=== PATIENT | female | born 1975 | race Caucasian/White ===

== ENCOUNTER 2018-04-04 18:35 | Emergency (ER) | payer MEDICAID, SELFPAY ==
[2018-04-04 18:44] VITALS: BP 115/77; PULSE 82; RESP 16; TEMP 36.6; O2SAT 99
--- NOTE | 2018-04-04 19:13 | DI.RPTCT_ITS ---
SYMPTOMS/DIAGNOSIS: LEFT FLANK AND ABDOMINAL PAIN WITH DYSURIA, KIDNEY/BLADDER ISSUES NONCONTRAST CT OF THE ABDOMEN AND PELVIS: Exam is somewhat limited by the patient's body habitus. There is a nonobstructing stone seen at the upper pole of the right kidney. There is no evidence of hydronephrosis. The bladder is unremarkable. The visualized portions of the lung bases are clear. There is hepatic steatosis. A single calcified gallstone is noted in the gallbladder. There is no gallbladder wall thickening or biliary dilatation. The spleen, adrenals and pancreas are unremarkable. The appendix appears normal. There is no bowel dilatation or inflammatory change. There is no free air or free fluid. No adenopathy is seen. The uterus and ovaries are unremarkable. There is bilateral spondylolysis at L4 and mild L4-5 spondylolisthesis. The aorta is normal in diameter. There is a small amount of fat at the umbilicus. IMPRESSION: Nonobstructing stone near the upper pole of the right kidney. No acute abnormality.
--- NOTE | 2018-04-04 19:14 | ED.GENADUL ---
Disposition Disposition: STILL A PATIENT Medical Decision Making - Medical Decision Making 42-year-old female with recent UTI treated with nitrofurantoin. She presents today complaining of left flank pain radiating to her abdomen with associated recurrence of dysuria. She is afebrile with unremarkable vital signs. Exam reveals left flank and left upper quadrant tenderness. Differential diagnosis includes pyelonephritis, renal colic, acute cystitis. Patient had IV access established, given analgesic, antiemetic, fluid bolus, referred for laboratory testing with urinalysis as well as CT scan of the abdomen to rule out kidney stone. Patient be signed out to Dr. Mayers pending her diagnostic workup. Please see his note regarding final impression and disposition. History of Present Illness - General Chief complaint: Urinary Stated complaint: KIDNEY/BLADDER ISSUES Time Seen by Provider: 04/04/18 18:40 Source: patient, RN notes reviewed Mode of arrival: ambulatory Limitations: no limitations - History of Present Illness Initial comments: Dysuria and flank pain: 42-year-old female who was treated approximately 3 weeks ago for urinary tract infection with 5 days of nitrofurantoin. She states she felt improvement. She now reports 4 days of increased urinary urgency and frequency with burning of urination. This morning she reports day 2 of the gradual onset of left flank pain it is dull, achy, constant with intermittent spikes of severity. It radiates to her abdomen. It is associated with nausea. She has not had any significant emesis. She denies a fever. No vaginal bleeding or discharge. There is no other modifying factors for her discomfort - Related Data Acetaminophen [Tylenol Extra Strength] 1,000 mg PO Q4H PRN PRN #0 02/20/16 Ibuprofen 1 tab PO Q4H PRN PRN #0 02/20/16 Nitroglycerin [Nitrostat] 0.4 mg SL Q5 MIN PRN X3 PRN #100 tab 02/20/16 Omeprazole 20 mg PO DAILY #90 tab-cap 03/19/17 Sertraline HCl [Zoloft] 50 mg PO DAILY #90 tab-cap 07/31/17 Phenazopyridine HCl [Pyridium] 200 mg PO TID #15 tab-cap 03/13/18 Allergies Allergy/AdvReac Type Severity Reaction Status Date / Time erythromycin base AdvReac DIARRHEA Unverified 04/04/18 18:47 Sulfa (Sulfonamide AdvReac DIARRHEA Unverified 04/04/18 18:47 Antibiotics) Review of Systems Other: 8 systems reviewed, otherwise negative Past Medical History - Past Medical History Medical history: no medical history Surgical history: other (LEFT OOPHERECTOMY AND TUBE) Family history: no significant family history - Social History Alcohol use: none Drug use: none General Exam - General Limitations: no limitations General appearance: alert, in no apparent distress - Head Head exam: Present: atraumatic, normocephalic - Eye Eye exam: Present: normal apperance, PERRL, EOMI - Respiratory Respiratory exam: Present: normal lung sounds bilaterally. Absent: respiratory distress - Cardiovascular Cardiovascular Exam: Present: regular rate, normal rhythm - GI/Abdominal GI/Abdominal exam: Present: soft, tenderness, other. Absent: distended - Back Exam Back exam: Present: CVA tenderness (L). Absent: vertebral tenderness - Neurological Exam Neurological exam: Present: alert, oriented X3 - Psychiatric Psychiatric exam: Present: normal affect, normal mood - Skin Skin exam: Present: warm, dry, intact Course Vital Signs - 24 hr 04/04/18 18:44 Temperature 36.6 C Pulse 82 Respiratory 16 Rate Blood Pressure 115/77 Pulse Oximetry 99
[2018-04-04] MEDS: Normal Saline 1,000 ML 150 ML IV (19:30)
[2018-04-04] MEDS: Ondansetron 4 MG/2 ML VIAL IVP (19:35)
[2018-04-04] MEDS: Ketorolac 30 MG/ML VIAL IVP (19:40)
[2018-04-04 20:05] LABS: Abs Immature Grans 0.02 k/cumm (0.0-0.09); Absolute Basophil Count 0.03 k/cumm (0.0-0.2); Absolute Eosinophil Count 0.11 k/cumm (0.0-0.7); Absolute Lymphocyte Count 1.74 k/cumm (1.2-3.4); Absolute Monocyte Count 0.74 k/cumm (0.11-0.7); Absolute Neutrophil Count 5.71 k/cumm (1.2-6.7); Basophils % 0.4; Eosinophils % 1.3; HCT 39.9 % (36.0-46.0); HGB 12.8 g/dL (12.0-15.5); Immature Grans % 0.2; Lymphocytes % 20.8; Mean Corp. HGB Concentration 32.1 g/dL (32.0-36.0); Mean Corpuscular Hemoglobin 24.9 pg (27.0-33.0); Mean Corpuscular Volume 77.6 fL (80-95); Mean Platelet Volume 9.9 fL (8.0-11.0); Monocytes % 8.9; Neutrophils % 68.4; Platelet Count 261 x1000/uL (130-400); RBC 5.14 m/cumm (4.00-5.20); RBC Distribution Width 15.7 % (11.7-14.6); White Blood Cell Count 8.35 k/cumm (4.4-10.8)
[2018-04-04 20:08] LABS: Bilirubin Negative (Negative); Blood Negative (Negative); Clarity Clear; Glucose Negative (Negative); Ketones 15 mg/dL (Negative); Leukocyte Esterase Small (Negative); Nitrite Negative (Negative); Specific Gravity 1.025 (1.005-1.025); Urobilinogen 0.2 EU/dL (Up TO 0.2); pH 5.5 (5-8)
[2018-04-04 20:11] LABS: ALT 21 U/L (12-78); AST 13 U/L (15-37); Albumin 3.9 g/dL (3.4-5.0); Alkaline Phosphatase 71 U/L (46-116); Anion Gap 11.2 mmol/L (3-11); BUN 9 mg/dL (7-18); Bilirubin, Total 0.6 mg/dL (0.2-1.0); CO2 26.8 mmol/L (21.0-32.0); CREATININE 0.83 mg/dL (0.55-1.02); Calcium 8.6 mg/dL (8.5-10.1); Chloride 102 mmol/L (98-107); Glucose 78 mg/dL (70-100); Potassium 3.5 mmol/L (3.5-5.1); Sodium 140 mmol/L (136-145); Total Protein 7.7 g/dL (6.4-8.2)
[2018-04-04 20:21] LABS: Bacteria Few HPF (Negative); C & S Indicated? No/Sq. Contamination; Casts Negative LPF (Negative); Crystals Negative HPF (Negative); Epithelial Cells Many HPF (Negative); Mucus Moderate (Negative); Other Cells Few Transitional (Negative); WBC >50 HPF (0-5)
[2018-04-04 21:10] LABS: Bilirubin Negative (Negative); Blood Negative (Negative); Clarity Clear; Glucose Negative (Negative); Ketones Trace mg/dL (Negative); Leukocyte Esterase Small (Negative); Nitrite Positive (Negative); Urobilinogen 0.2 EU/dL (Up TO 0.2); pH 5.5 (5-8)
--- NOTE | 2018-04-04 21:11 | DI.VRAD_ITS ---
EXAM: CT Abdomen and Pelvis Without Intravenous Contrast EXAM DATE/TIME: 04/04/2018 7:14 PM CLINICAL HISTORY: 42 years old, female; Pain; Abdominal pain TECHNIQUE: Axial computed tomography images of the abdomen and pelvis without intravenous contrast. Coronal and sagittal reformatted images were created and reviewed. COMPARISON: CT - ABD PELVIS WITH CONTRAST 2013-11-19 12:54 FINDINGS: The lung bases are clear. There are bilateral pars defects at L4. There is slight anterior subluxation of L4 with respect L5. There is mild fatty infiltration of the liver. A gallstone is seen within the gallbladder. The pancreas is unremarkable. The spleen is unremarkable. There is no adrenal mass. There is a 5 mm calculus in the midpole the right kidney. No hydronephrosis or mass is seen. The aorta is normal in caliber. The IVC is normal in caliber. There is no retroperitoneal adenopathy. There is no mesenteric adenopathy. The stomach is unremarkable. The small bowel loops in the upper abdomen are nondistended with no bowel wall thickening. Feces is seen throughout the colon. There is no thickening of the wall of the ascending, transverse or descending colons. There is a small fat containing umbilical hernia. Within the pelvis: A normal appendix is seen within the right lower quadrant. The bladder is nondistended. The uterus is unremarkable. There are no adnexal masses. There is no free fluid within the pelvis. There is no inguinal adenopathy. There is no pelvic adenopathy. Feces is seen within the rectosigmoid colon. IMPRESSION: 1. Mild constipation. No evidence for bowel obstruction or bowel wall thickening. 2. Normal appendix. 3. Mild fatty infiltration of the liver. 4. A gallstone is seen within the gallbladder. 5. No acute inflammatory process is seen within the abdomen or pelvis. Dictated and Authenticated by: Talat Carrasquillo MD. Ordering:YULISSA HAAS MD
[2018-04-04 21:16] LABS: Epithelial Cells Few HPF (Negative); RBC Negative (0-2); WBC 20-50 HPF (0-5)
[2018-04-04 21:17] LABS: Bacteria Negative HPF (Negative); C & S Indicated? Yes; Casts Negative LPF (Negative); Crystals Negative HPF (Negative); Mucus Negative (Negative); Other Cells Few Transitional (Negative)
--- NOTE | 2018-04-04 23:07 | ED.FU_ITS ---
Disposition Clinical Impression: Pyelonephritis, acute, Gallstones Disposition: HOME Condition: Good Instructions: Ciprofloxacin (By mouth), Kidney Infection (ED) Additional Instructions: Be sure to stay hydrated. Take all of the antibiotic as instructed. Follow-up with primary care this week to make sure you are getting better as well as to discuss the possibility of symptomatic gallstones. Return to ED for worsening pain, vomiting, persistent high fevers, other concerns. Prescriptions: Ciprofloxacin [Cipro] 500 mg PO BID #20 tab Referrals: Ravinder Escalante [Primary Care Provider] - Medical Decision Making - Lab Data Laboratory Tests 04/04/18 04/04/18 04/04/18 19:23 19:30 19:30 WBC 8.35 RBC 5.14 Hgb 12.8 Hct 39.9 MCV 77.6 L MCH 24.9 L MCHC 32.1 RDW 15.7 H Plt Count 261 MPV 9.9 Immature Gran % 0.2 Neutrophils % 68.4 Lymphocytes % 20.8 Monocytes % 8.9 Eosinophils % 1.3 Basophils % 0.4 Absolute Neutrophils 5.71 Absolute Lymphocytes 1.74 Absolute Monocytes 0.74 H Absolute Eosinophils 0.11 Absolute Basophils 0.03 Sodium 140 Potassium 3.5 Chloride 102 Carbon Dioxide 26.8 Anion Gap 11.2 H BUN 9 Creatinine 0.83 Estimated GFR/1.73 m2 >= 60.00 Glucose 78 Calcium 8.6 Total Bilirubin 0.6 AST 13 L ALT 21 Alkaline Phosphatase 71 Total Protein 7.7 Albumin 3.9 Urine Color Yellow Urine Clarity Clear Urine pH 5.5 Ur Specific [place] 1.025 Urine Protein 30 H Urine Ketones 15 H Urine Blood Negative Urine Nitrite Negative Urine Bilirubin Negative Urine Urobilinogen 0.2 Ur Leukocyte Esterase Small H Urine RBC 10-20 H Urine WBC >50 Ur Epithelial Cells Many Urine Crystals Negative Urine Bacteria Few Urine Casts Negative Urine Mucus Moderate Urine Other Few transitional Ur Culture Indicated? No/sq. contamination Urine Glucose Negative 04/04/18 20:50 WBC RBC Hgb Hct MCV MCH MCHC RDW Plt Count MPV Immature Gran % Neutrophils % Lymphocytes % Monocytes % Eosinophils % Basophils % Absolute Neutrophils Absolute Lymphocytes Absolute Monocytes Absolute Eosinophils Absolute Basophils Sodium Potassium Chloride Carbon Dioxide Anion Gap BUN Creatinine Estimated GFR/1.73 m2 Glucose Calcium Total Bilirubin AST ALT Alkaline Phosphatase Total Protein Albumin Urine Color Yellow Urine Clarity Clear Urine pH 5.5 Ur Specific [place] 1.020 Urine Protein Negative Urine Ketones Trace H Urine Blood Negative Urine Nitrite Positive H Urine Bilirubin Negative Urine Urobilinogen 0.2 Ur Leukocyte Esterase Small H Urine RBC Negative Urine WBC 20-50 Ur Epithelial Cells Few Urine Crystals Negative Urine Bacteria Negative Urine Casts Negative Urine Mucus Negative Urine Other Few transitional Ur Culture Indicated? Yes Urine Glucose Negative Results reviewed for labs ordered during visit: Yes - Radiology Data Radiology results: report reviewed - Medical Decision Making Patient's CBC and CMP are unremarkable. Initial urinalysis is contaminated. Discussed need for a clean specimen with patient. She agreed to straight cath. Straight cath urine clearly infected. Stone study significant for a gallstone. In discussion with her she does have right sided abdominal pain with some radiation to the right shoulder if she eats greasy/fatty foods. She has no tenderness or pain in the right upper quadrant tonight. She also has a 5 mm right kidney stone within the midpole. She has nothing in the left urinary system. Otherwise mostly unremarkable CT scan. Patient will be treated for acute pyelonephritis. As she has been on Macrobid recently will give IV ceftriaxone and continue her on fluoroquinolone for 10 days. She will need to follow-up with primary care this week both to discuss the possibility of symptomatic biliary colic and need for referral to surgery as well as for reevaluation for her response to the antibiotics for her pyelonephritis. Patient to return to ED for increasing pain, fever, vomiting, other concerns. Care Signed Out By:: Dr. Carreon - Vital Signs Recent Vitals - 8H: Vital Signs - 8 hr 04/04/18 18:44 Temperature 97.9 F Pulse 82 Respiratory 16 Rate Blood Pressure 115/77 Pulse Oximetry 99 - Continuation of Care Continuation of Care Plan: Patient had presented with recurrent urinary symptoms and new left flank pain. She had recently been treated for UTI. She was originally seen by Dr. Carreon who ordered laboratory studies, urinalysis, CT scan to rule out stone. She was signed over to me pending these results.
[2018-04-04 23:27] VITALS: BP 104/60; PULSE 70; RESP 16; TEMP 35.7; O2SAT 100
== END 2018-04-04 23:29 | disposition home or self-care (01) ==
PROVIDERS: Emergency Medicine; Emergency Provider Emergency Medicine; PCP Family Medicine
DX: N10 Acute pyelonephritis (principal); K80.20 Calculus of gallbladder without cholecystitis without obstruction; Z87.440 Personal history of urinary (tract) infections
CPT/HCPCS: 36415; 51701; 80053; 96361; 96365; 96375; 99284; 74176; 81003; 81015; 85025; 87086; J0696; J1885; J2405

== ENCOUNTER 2018-08-08 11:00 | Emergency (ER) | payer MEDICAID, SELFPAY ==
[2018-08-08 11:05] VITALS: BP 128/68; PULSE 72; RESP 16; TEMP 36.7; O2SAT 98
--- NOTE | 2018-08-08 11:18 | DI.RAD_ITS ---
SYMPTOM/DIAGNOSIS: FELL OUT OF ELEVATED TRUCK LANDING ON LEFT SHOULDER RIGHT SHOULDER: Multiple views. No acute fracture or dislocation is identified. IMPRESSION: No acute abnormality.
--- NOTE | 2018-08-08 11:18 | W.ED.GENAD ---
Discharge Plan Disposition Patient Disposition: HOME Condition: Good Discharge Details Chief Complaint: Orthopedic Clinical Impression: Contusion of right shoulder, Left wrist sprain Primary Care Provider: Ravinder Escalante ED Provider: Collin Panda Home Meds and New Rx's Prescriptions: New cyclobenzaprine 10 mg tablet 10 mg PO TID PRN (Reason: muscle spasm) Qty: 10 RF: 0 No Action omeprazole 20 MG capsule,delayed release(DR/EC) 20 mg PO DAILY Qty: 90 RF: 3 sertraline [Zoloft] 50 MG tablet 50 mg PO DAILY Qty: 90 RF: 3 nitroglycerin [Nitrostat] 0.4 MG tablet, sublingual 0.4 mg Sublingual Q5 MIN PRN X3 PRN (Reason: Chest Pain) Qty: 100 RF: 0 acetaminophen [Tylenol Extra Strength] 500 MG tablet 1,000 mg PO Q6H PRNQty: 0 RF: 0 ibuprofen 200 MG tablet 2 tab PO Q6H PRNQty: 0 RF: 0 Discharge Instructions Instructions: Contusion in Adults (ED), Wrist Sprain (ED) Additional Instructions: May use NSAID of your choice for pain and Flexeril as needed. Stand Alone Forms: Work Release Referrals: [facility] Emergency Dept. [Outside] - Return if symptoms worsen Medical Decision Making 42 y/o right hand dominant female. Will x-ray right shoulder and left wrist. Will provide Flexeril for the pain to right chest wall. Apprised pt of normal x-rays. Nurse fitted for left wrist splint. Good CSMT post splint placement. Pt tells me the flexeril was helpful. Will prescribe for home use. Advised to return to ED if symptoms worsen otherwise with pcp previously planned. Imaging Data Radiologic Study: Imaging: X-Ray My impression: No obvious fracture to left wrist film and right shoulder film. Radiologist's impression: v-rad: Left Wrist: No evidence for acute abnormality. Right shoulder: No evidence for acute abnormality. HPI General Mode of arrival: ambulatory. Date/Time Provider Initiated Documentation: 08/08/18 11:12. Limitations to Documentation: no limitations. Information obtained by: patient. History of Present Illness 42 year old F presents to the emergency department with the chief complaint of right shoulder and left wrist pain, described as mild, HPI Narrative: 42 y/o female here with c/o right shoulder and left wrist pain after fall two nights ago. She slipped getting out of a elevated truck landing on right anterior shoulder and left wrist. The pain in the left shoulder is worse and radiates into her chest. The pain in her left wrist is worse on the ulna side compared to radial side and most noticeable when she flexes at the wrist. Using Ibuprofen and Tylenol for the pain with little benefit. Related Data Home Medications Medication Instructions Recorded Confirmed nitroglycerin [Nitrostat] 0.4 mg SUBLINGUAL Q5 MIN PRN X3 02/20/16 08/08/18 PRN #100 tab omeprazole 20 mg PO DAILY #90 tab-cap 03/19/17 08/08/18 sertraline [Zoloft] 50 mg PO DAILY #90 tab-cap 07/31/17 08/08/18 acetaminophen [Tylenol Extra 1,000 mg PO Q6H PRN #0 04/04/18 08/08/18 Strength] ibuprofen 2 tab PO Q6H PRN #0 04/04/18 08/08/18 cyclobenzaprine 10 mg PO TID PRN #10 tab 08/08/18 Previous Rx's Medication Instructions Recorded nitroglycerin [Nitrostat] 0.4 mg SUBLINGUAL Q5 MIN PRN X3 02/20/16 PRN #100 tab sertraline [Zoloft] 50 mg PO DAILY #90 tab-cap 07/31/17 acetaminophen [Tylenol Extra 1,000 mg PO Q6H PRN #0 04/04/18 Strength] ibuprofen 2 tab PO Q6H PRN #0 04/04/18 cyclobenzaprine 10 mg PO TID PRN #10 tab 08/08/18 Allergies Allergy/AdvReac Type Severity Reaction Status Date / Time erythromycin base AdvReac DIARRHEA Unverified 08/08/18 11:10 Sulfa (Sulfonamide AdvReac DIARRHEA Unverified 08/08/18 11:10 Antibiotics) General Stated Complaint: Orthopedic MUKUL: 4 Review of Systems Review of Systems No head injury Musculoskeletal Reports myalgias (right shoulder and left wrist) PFSH Medical History BMI 45.0-49.9, adult Depression Family history of malignant neoplasm of ovary in first degree relative GERD (gastroesophageal reflux disease) Surgical History Oophrectomy, Left (~09/2013) Tooth extraction Family History Mother Diabetes Personal history of malignant neoplasm Father Heart disease Hyperlipidemia Sister Personal history of malignant neoplasm Grandfather No problems noted. Grandfather No problems noted. Grandmother No problems noted. Grandmother No problems noted. Daughter Depression Asthma Daughter No problems noted. Daughter Depression Social History household members: other details: 4 current occupational status: employed current occupation: [employer] frequency: 3-4 times per week duration: 30-45 minutes/day Smoking/Tobacco Use Status: Former Tobacco Use second hand exposure: Yes alcohol intake: current alcohol intake frequency: a few times a month substance use type: does not use seatbelt use: always Exam Const General: cooperative, comfortable and no acute distress Nutritional Appearance: obese Orientation: alert, awake and oriented x3 HENMT Head: atraumatic Ears: hearing grossly normal bilaterally and external ears normal General nose exam: external nose normal and nares normal Eyes General: appearance normal, both eyes and all related structures Neck Neck: normal visual inspection, full ROM, supple and nontender Chest Chest: normal inspection of the chest Resp Effort & Inspection: normal respiratory effort Auscultation: clear to auscultation bilaterally Cardio Rate: regular rate Rhythm: regular rhythm Back/Spine/Pelvis Cervical Spine: cervical ROM normal Thoracic/Lumbar Spine: thoraco-lumbar ROM normal Skin General skin exam: no rashes or lesions noted Neuro General: alert, awake and oriented x3 Extrem General: normal to inspection and normal capillary refill Right upper extremity: full ROM (with pain), normal capillary refill, no joint enlargement, shoulder/upper arm Details: tenderness Location: of the clavicle, of the A-C joint, over the biceps tendon, over the subacromial bursa and over the deltoid bursa and abnormal ROM Details: pain with active ROM and pain with passive ROM; no swelling, elbow/forearm Details: normal to inspection; no tenderness and wrist Details: normal to inspection; no tenderness Left upper extremity: normal to inspection, full ROM, normal capillary refill, shoulder/upper arm Details: inspection abnormal; no tenderness, elbow/forearm Details: normal to inspection; no tenderness and no swelling and wrist Details: normal to inspection, tenderness Location: of the distal radius, of the distal ulna, of the dorsal wrist and of the volar wrist; not of the anatomic snuffbox and normal ROM; no swelling and no unusual warmth Course Vital Signs Temperature 36.7 C 08/08/18 11:05 Pulse 72 08/08/18 11:05 Respiratory Rate 16 08/08/18 11:05 Blood Pressure 128/68 08/08/18 11:05 Pulse Oximetry 98 08/08/18 11:05 Temperature 36.7 C 08/08/18 11:05 Temperature Source Temporal Artery Scan 08/08/18 11:05 Pulse 72 08/08/18 11:05 Respiratory Rate 16 08/08/18 11:05 Respiratory Effort Non-Labored 08/08/18 11:09 Blood Pressure 128/68 08/08/18 11:05 Blood Pressure Position Sitting 08/08/18 11:05 Pulse Oximetry 98 08/08/18 11:05 Oxygen Delivery Method Room Air 08/08/18 11:05 Oxygen Flow Rate 0 08/08/18 11:05 Pain Level 7 08/08/18 11:05
--- NOTE | 2018-08-08 11:20 | DI.RAD_ITS ---
SYMPTOM/DIAGNOSIS: PAIN AFTER FALL. ULNA > RADIAL SIDE LEFT WRIST: Three views. No bone or joint abnormality is identified. IMPRESSION: No acute abnormality.
--- NOTE | 2018-08-08 11:22 | ED.GENADUL_ITS ---
Discharge Plan Disposition Patient Disposition: HOME Condition: Good Discharge Details Chief Complaint: Orthopedic Clinical Impression: Contusion of right shoulder, Left wrist sprain Primary Care Provider: Ravinder Escalante ED Provider: Collin Panda Home Meds and New Rx's Prescriptions: New cyclobenzaprine 10 mg tablet 10 mg PO TID PRN (Reason: muscle spasm) Qty: 10 RF: 0 No Action omeprazole 20 MG capsule,delayed release(DR/EC) 20 mg PO DAILY Qty: 90 RF: 3 sertraline [Zoloft] 50 MG tablet 50 mg PO DAILY Qty: 90 RF: 3 nitroglycerin [Nitrostat] 0.4 MG tablet, sublingual 0.4 mg Sublingual Q5 MIN PRN X3 PRN (Reason: Chest Pain) Qty: 100 RF: 0 acetaminophen [Tylenol Extra Strength] 500 MG tablet 1,000 mg PO Q6H PRNQty: 0 RF: 0 ibuprofen 200 MG tablet 2 tab PO Q6H PRNQty: 0 RF: 0 Discharge Instructions Instructions: Contusion in Adults (ED), Wrist Sprain (ED) Additional Instructions: May use NSAID of your choice for pain and Flexeril as needed. Stand Alone Forms: Work Release Referrals: [facility] Emergency Dept. [Outside] - Return if symptoms worsen Medical Decision Making 42 y/o right hand dominant female. Will x-ray right shoulder and left wrist. Will provide Flexeril for the pain to right chest wall. Apprised pt of normal x-rays. Nurse fitted for left wrist splint. Good CSMT post splint placement. Pt tells me the flexeril was helpful. Will prescribe for home use. Advised to return to ED if symptoms worsen otherwise with pcp previously planned. Imaging Data Radiologic Study: Imaging: X-Ray My impression: No obvious fracture to left wrist film and right shoulder film. Radiologist's impression: v-rad: Left Wrist: No evidence for acute abnormality. Right shoulder: No evidence for acute abnormality. HPI General Mode of arrival: ambulatory . Date/Time Provider Initiated Documentation: 08/08/18 11:12 . Limitations to Documentation: no limitations . Information obtained by: patient . History of Present Illness 42 year old F presents to the emergency department with the chief complaint of right shoulder and left wrist pain, described as mild, HPI Narrative: 42 y/o female here with c/o right shoulder and left wrist pain after fall two nights ago. She slipped getting out of a elevated truck landing on right anterior shoulder and left wrist. The pain in the left shoulder is worse and radiates into her chest. The pain in her left wrist is worse on the ulna side compared to radial side and most noticeable when she flexes at the wrist. Using Ibuprofen and Tylenol for the pain with little benefit. Related Data Home Medications Medication Instructions Recorded Confirmed nitroglycerin [Nitrostat] 0.4 mg SUBLINGUAL Q5 MIN PRN X3 02/20/16 08/08/18 PRN #100 tab omeprazole 20 mg PO DAILY #90 tab-cap 03/19/17 08/08/18 sertraline [Zoloft] 50 mg PO DAILY #90 tab-cap 07/31/17 08/08/18 acetaminophen [Tylenol Extra 1,000 mg PO Q6H PRN #0 04/04/18 08/08/18 Strength] ibuprofen 2 tab PO Q6H PRN #0 04/04/18 08/08/18 cyclobenzaprine 10 mg PO TID PRN #10 tab 08/08/18 Previous Rx's Medication Instructions Recorded nitroglycerin [Nitrostat] 0.4 mg SUBLINGUAL Q5 MIN PRN X3 02/20/16 PRN #100 tab sertraline [Zoloft] 50 mg PO DAILY #90 tab-cap 07/31/17 acetaminophen [Tylenol Extra 1,000 mg PO Q6H PRN #0 04/04/18 Strength] ibuprofen 2 tab PO Q6H PRN #0 04/04/18 cyclobenzaprine 10 mg PO TID PRN #10 tab 08/08/18 Allergies Allergy/AdvReac Type Severity Reaction Status Date / Time erythromycin base AdvReac DIARRHEA Unverified 08/08/18 11:10 Sulfa (Sulfonamide AdvReac DIARRHEA Unverified 08/08/18 11:10 Antibiotics) General Stated Complaint: Orthopedic MUKUL: 4 Review of Systems Review of Systems No head injury Musculoskeletal Reports myalgias (right shoulder and left wrist) PFSH Medical History BMI 45.0-49.9, adult Depression Family history of malignant neoplasm of ovary in first degree relative GERD (gastroesophageal reflux disease) Surgical History Oophrectomy, Left (~09/2013) Tooth extraction Family History Mother Diabetes Personal history of malignant neoplasm Father Heart disease Hyperlipidemia Sister Personal history of malignant neoplasm Grandfather No problems noted. Grandfather No problems noted. Grandmother No problems noted. Grandmother No problems noted. Daughter Depression Asthma Daughter No problems noted. Daughter Depression Social History household members: other details: 4 current occupational status: employed current occupation: [id number] frequency: 3-4 times per week duration: 30-45 minutes/day Smoking/Tobacco Use Status: Former Tobacco Use second hand exposure: Yes alcohol intake: current alcohol intake frequency: a few times a month substance use type: does not use seatbelt use: always Exam Const General: cooperative, comfortable and no acute distress Nutritional Appearance: obese Orientation: alert, awake and oriented x3 HENMT Head: atraumatic Ears: hearing grossly normal bilaterally and external ears normal General nose exam: external nose normal and nares normal Eyes General: appearance normal, both eyes and all related structures Neck Neck: normal visual inspection, full ROM, supple and nontender Chest Chest: normal inspection of the chest Resp Effort & Inspection: normal respiratory effort Auscultation: clear to auscultation bilaterally Cardio Rate: regular rate Rhythm: regular rhythm Back/Spine/Pelvis Cervical Spine: cervical ROM normal Thoracic/Lumbar Spine: thoraco-lumbar ROM normal Skin General skin exam: no rashes or lesions noted Neuro General: alert, awake and oriented x3 Extrem General: normal to inspection and normal capillary refill Right upper extremity: full ROM (with pain), normal capillary refill, no joint enlargement, shoulder/upper arm Details: tenderness Location: of the clavicle, of the A-C joint, over the biceps tendon, over the subacromial bursa and over the deltoid bursa and abnormal ROM Details: pain with active ROM and pain with passive ROM; no swelling, elbow/forearm Details: normal to inspection; no tenderness and wrist Details: normal to inspection; no tenderness Left upper extremity: normal to inspection, full ROM, normal capillary refill, shoulder/upper arm Details: inspection abnormal; no tenderness, elbow/forearm Details: normal to inspection; no tenderness and no swelling and wrist Details: normal to inspection, tenderness Location: of the distal radius, of the distal ulna, of the dorsal wrist and of the volar wrist; not of the anatomic snuffbox and normal ROM; no swelling and no unusual warmth Course Vital Signs Temperature 36.7 C 08/08/18 11:05 Pulse 72 08/08/18 11:05 Respiratory Rate 16 08/08/18 11:05 Blood Pressure 128/68 08/08/18 11:05 Pulse Oximetry 98 08/08/18 11:05 Temperature 36.7 C 08/08/18 11:05 Temperature Source Temporal Artery Scan 08/08/18 11:05 Pulse 72 08/08/18 11:05 Respiratory Rate 16 08/08/18 11:05 Respiratory Effort Non-Labored 08/08/18 11:09 Blood Pressure 128/68 08/08/18 11:05 Blood Pressure Position Sitting 08/08/18 11:05 Pulse Oximetry 98 08/08/18 11:05 Oxygen Delivery Method Room Air 08/08/18 11:05 Oxygen Flow Rate 0 08/08/18 11:05 Pain Level 7 08/08/18 11:05
[2018-08-08] MEDS: Cyclobenzaprine 10 MG TAB PO (11:35)
--- NOTE | 2018-08-08 12:35 | DI.VRAD_ITS ---
EXAM: XR Right Shoulder Complete, 2 or More Views EXAM DATE/TIME: 08/08/2018 11:20 AM CLINICAL HISTORY: 42 years old, female; Pain; Shoulder; Right; Patient HX: Pain after fall TECHNIQUE: XR Right shoulder complete 2 or more views. COMPARISON: No relevant prior studies available. FINDINGS: Bones/joints: Bony alignment is anatomic without evidence for fracture or dislocation. Soft tissues: Normal. IMPRESSION: No evidence for acute abnormality. COMMENT: Preliminary interpretation is based on receipt of 6 image(s). A final report will be issued subsequently. Dictated and Authenticated by: Cindy Null MD. Ordering:NILES Polanco MD
--- NOTE | 2018-08-08 12:36 | DI.VRAD_ITS ---
EXAM: XR Left Wrist Complete, 3 or more Views EXAM DATE/TIME: 08/08/2018 11:21 AM CLINICAL HISTORY: 42 years old, female; Pain; Wrist; Left; Patient HX: Pain after fall. TECHNIQUE: XR Left wrist 3 or more views. COMPARISON: No relevant prior studies available. FINDINGS: Bones/joints: Bony alignment is anatomic without evidence for fracture or dislocation. Soft tissues: Normal. IMPRESSION: No evidence for acute abnormality. COMMENT: Preliminary interpretation is based on receipt of 3 image(s). A final report will be issued subsequently. Dictated and Authenticated by: Cindy Null MD. Ordering:NILES Polanco MD
== END 2018-08-08 13:05 | disposition home or self-care (01) ==
PROVIDERS: Emergency Provider Nurse Practitioner Family; PCP Family Medicine
DX: S40.011A Contusion of right shoulder, initial encounter (principal); S63.502A Unspecified sprain of left wrist, initial encounter; W17.89XA Other fall from one level to another, initial encounter
CPT/HCPCS: 29125; 99284; 73030; 73110; 99282; L3908

== ENCOUNTER 2018-11-26 14:45 | Outpatient (CLI) | payer MEDICAID, SELFPAY ==
[2018-11-26 16:11] LABS: TSH (W/Ref FT4) 1.38 uIU/mL (0.358-3.74)
== END 2018-11-26 15:05 ==
PROVIDERS: PCP Family Medicine; Visit Provider Nurse Practitioner Family
DX: N92.6 Irregular menstruation, unspecified (principal)
CPT/HCPCS: 36415; 84443

== ENCOUNTER 2018-11-26 15:38 | Outpatient (REF) | payer MEDICAID, SELFPAY ==
--- NOTE | 2018-11-26 14:30 | PAPFT_PTH ---
PATIENT: Korina Francois LOC: [facility] U#:[id number] AGE/SX: 42/F ROOM: RE11/26/[address]: SALVATORE Winkler : 1975 BED: DIS: 11/26/2018 SPEC #: [id number] RECD: 11/26/18 18:03 STATUS: SILVIA REConnor #: [id number] ELISA: 11/26/18 14:[address]: Teena Mondragon DEPT: [facility] Cytology RECD BY: Destinee Chou ENTERED: 11/26/18 18:03 SP TYPE: PAPFT ESTRADA DR: Ravinder Escalante MD Tissues: 1 - CX/ENDOCX FOR PAP SMEARS Procedures: PAP THIN PREP/UVM Screening HPV DNA PROBE Comments: [id number]
[2018-11-30 14:05] LABS: Chlamydia Result Negative; GC Result Negative; Specimen Description CERVIX
== END 2018-11-26 15:58 ==
LOC: LBN 15:38
PROVIDERS: PCP Family Medicine; Visit Provider Nurse Practitioner Family
DX: Z11.3 Encounter for screening for infections with a predominantly sexual mode of transmission (principal); Z12.4 Encounter for screening for malignant neoplasm of cervix; Z11.51 Encounter for screening for human papillomavirus (HPV)
CPT/HCPCS: 87491; 87591; 88142; 87624

== ENCOUNTER 2018-12-10 00:11 | Outpatient (CLI) | payer MEDICAID, SELFPAY ==
--- NOTE | 2018-12-10 13:55 | DI.US_ITS ---
SYMPTOMS/DIAGNOSIS: MENORRHAGIA, N92.0, AMENORRHEA SINCE 09/12, HEAVY BLEEDING PRIOR TO THAT, S/P LEFT OOPHORECTOMY PELVIC ULTRASOUND: Pelvic ultrasound was performed transabdominally and transvaginally. Please see the accompanying data sheet for measurements of pelvic structures. The uterus is mildly enlarged and mildly heterogeneous appearance of the myometrium is noted. The endometrial stripe is about 6 mm in thickness and appears homogeneous. The left ovary is not visualized and reportedly has been removed. The right ovary has a normal follicular appearance with a presumed dominant 19 mm follicle. No free fluid identified in the cul-de-sac. Limited scanning of the kidneys is unremarkable. CONCLUSION: Negative pelvic ultrasound.
== END 2018-12-10 00:31 ==
PROVIDERS: PCP Family Medicine; Visit Provider Nurse Practitioner Family
DX: N92.0 Excessive and frequent menstruation with regular cycle (principal); N85.2 Hypertrophy of uterus
CPT/HCPCS: 76830; 76856

== ENCOUNTER 2018-12-24 15:27 | Outpatient (REF) | payer MEDICAID, SELFPAY ==
--- NOTE | 2018-12-24 15:15 | ENDOMET_PTH ---
PATIENT: Korina Francois LOC: [facility] U#:[id number] AGE/SX: 43/F ROOM: RE12/24/[address]: Steven Zhao MD : 1975 BED: DIS: 12/24/2018 SPEC #: [id number] RECD: 12/24/18 17:39 STATUS: SILVIA REQ #: [id number] ELISA: 12/24/18 15:[address]: Steven Zhao DEPT: Surgical Specimen RECD BY: Destinee Chou ENTERED: 12/24/18 17:40 SP TYPE: Endomet OTHR DR: Ravinder Escalante MD Tissues: 1 - ENDOMETRIUM BX/CURRETTE Procedures: GROSS AND MICRO LEVEL 4 Comments: [id number]
== END 2018-12-24 15:47 ==
LOC: LBN 15:27
PROVIDERS: PCP Family Medicine; Visit Provider Obstetrics & Gynecology
DX: N85.00 Endometrial hyperplasia, unspecified (principal); N92.0 Excessive and frequent menstruation with regular cycle
CPT/HCPCS: 88305

== ENCOUNTER 2019-02-02 00:52 | Outpatient (CLI) | payer MEDICAID, SELFPAY ==
--- NOTE | 2019-02-02 15:30 | DI.MAMMO_ITS ---
SYMPTOMS/DIAGNOSIS: SCREENING, Z12.31 MAMMOGRAMS: Mammograms were interpreted according to the usual protocol including computer analysis with CAD system, tomosynthesis and C view imaging. The breast tissue is primarily of fatty radiodensity. There is no dominant mass. There are no suspicious calcifications and there has been no significant interval change when compared with the prior images. SUMMARY: No evidence of malignancy, category 1. Yearly screening mammography is recommended. Breast density category A. MQSA ASSESSMENT OF FINDINGS: Negative. Category 1. Patient will receive a letter notifying them of these results. BI-RAD category A. The breasts are almost entirely fatty.
== END 2019-02-02 01:12 ==
PROVIDERS: PCP Family Medicine; Visit Provider Nurse Practitioner Family
DX: Z12.31 Encounter for screening mammogram for malignant neoplasm of breast (principal)
CPT/HCPCS: 77063; 77067

== ENCOUNTER 2019-02-12 15:29 | Outpatient (CLI) | payer MEDICAID, SELFPAY ==
[2019-02-12 16:10] LABS: HCT 39.9 % (36.0-46.0); HGB 12.9 g/dL (12.0-15.5); Mean Corp. HGB Concentration 32.3 g/dL (32.0-36.0); Mean Corpuscular Hemoglobin 26.8 pg (27.0-33.0); Mean Corpuscular Volume 82.8 fL (80-95); Platelet Count 291 x1000/uL (130-400); RBC 4.82 m/cumm (4.00-5.20); RBC Distribution Width 14.7 % (11.7-14.6); White Blood Cell Count 7.45 k/cumm (4.4-10.8)
== END 2019-02-12 15:49 ==
PROVIDERS: PCP Family Medicine; Visit Provider Obstetrics & Gynecology
DX: N92.0 Excessive and frequent menstruation with regular cycle (principal); Z01.812 Encounter for preprocedural laboratory examination; Z01.818 Encounter for other preprocedural examination
CPT/HCPCS: 36415; 85027; 86850; 86900; 86901

== ENCOUNTER 2019-02-17 15:19 | Observation (INO) | payer MEDICAID, SELFPAY ==
[2019-02-17] VITALS (16 sets, daily range): BP systolic 89–124; BP diastolic 29–77; PULSE 56–74; RESP 13–26; TEMP 36.4–37.3; O2SAT 93–100
[2019-02-17] MEDS: Lactated Ringers 1,000 ML 125 ML IV ×3 (09:29→15:51)
[2019-02-17] MEDS: FAMOTIDINE 20 MG/50 ML BAG 100 MG (10:44)
[2019-02-17] MEDS: ceFAZolin 2 GM/50 ML BAG IVPB (12:00)
[2019-02-17] MEDS: Bupivacaine 0.25% Pres-Free 30 ML VIAL (12:19)
[2019-02-17] MEDS: Vasopressin 20 UNITS/ML VIAL (13:06)
[2019-02-17] MEDS: Normal Saline 20 ML VIAL (13:06)
--- NOTE | 2019-02-17 13:16 | UTER_PTH ---
PATIENT: Korina Francois LOC: [id number]#:[id number] AGE/SX: 43/F ROOM: 231 RE02/17/[address]: Steven Zhao MD : 1975 BED: A DIS: 02/18/2019 SPEC #: [id number] RECD: 02/17/19 17:44 STATUS: SILVIA REConnor #: [id number] ELISA: 02/17/19 13:[address]: Steven Zhao DEPT: Surgical Specimen RECD BY: Destinee Chou ENTERED: 02/17/19 17:46 SP TYPE: UTER OTHR DR: Ravinder Escalante MD Tissues: 1 - OVARY NOT TUMOR W OR W/O TUBES 2 - UTERUS W OR W/O OVARIES(NOT TUMOR/PROLAPSE) Procedures: GROSS AND MICRO LEVEL 4 GROSS AND MICRO LEVEL 5 P16 IPEX Comments: [id number]
[2019-02-17] MEDS: fentaNYL 100 MCG/2 ML VIAL IVP ×2 (15:41→15:56)
[2019-02-17] MEDS: LORazepam 2 MG/ML VIAL 0.5 MG IVP (16:15)
--- NOTE | 2019-02-17 16:43 | ROE_ITS ---
Date of service: 02/17/19 Time of Service: 16:33 Operative Note DATE OF PROCEDURE: 02/17/19 PRE-OP DIAGNOSIS: Menorhagia, Family histoyr of breast and ovarian cancer POST-OP DIAGNOSIS: same PROCEDURE: LAVH RSO, cystoscopy SURGEON: Steven Zhao ASSISTING SURGEON: Kelle Portillo ANESTHESIA: GETA ESTIMATED BLOOD LOSS: 150 PATHOLOGY: other (Uterus, right tube and ovary) COMPLICATIONS: None Patient was transported to: PACU Patient's condition: stable Findings: Enlarged boggy uterus. Normal appearing right tube and ovary. Normal postoperative cystoscopy Procedure Description: The patient was taken to the operating room and after adequate level of general anesthesia was obtained. The patient was prepped and draped in the usual sterile manner. A weighted speculum was placed in the vagina with good visualization of the cervix. The anterior lip of the cervix was grasped with a single-tooth tenaculum and a [employer] uterine manipulator was placed. A Hull catheter had been placed in the bladder. The surgeon was regloved. Attention was then turned to the patient's abdomen. The skin and subcutaneous tissues at the umbilicus were infiltrated with 0.25% Marcaine solution. A small infraumbilical skin incision was then made with a #15 blade scalpel. Sharp dissection was carried down to the underlying layer of fascia. The fascia was grasped with 2 Tanesha clamps and incised sharply with a scalpel. The peritoneum was entered with a hemostat. S retractors were placed. 2 sutures of 0 Vicryl were placed in either side of the fascial incision. A 10 mm balloon port trocar was advanced through the incision. A pneumoperitoneum to approximately 15 mmHg with carbon dioxide was established. 2 5 mm ports were placed in the right lower and left lower quadrants under direct visualization. The right fallopian tube was noted to be normal in appearance. The right ureter was identified at the pelvic brim. Dissection was first carried across the right infundibulopelvic ligament dissection was carried down the broad ligament to the level of the uterine vessels. The bladder flap was dissected to the midline and the bladder was reflected inferiorly. Attention was then turned to the opposite side where the left fallopian tube and ovary were surgically absent. Dissection was carried across the broad ligament with the LigaSure and down to the level of the uterine vessels. The bladder flap was reflected inferiorly. Attention was turned to the vaginal portion of this procedure. A weighted speculum was placed in the vagina with good visualization of the cervix. The cervix was infiltrated with vasopressin solution. A circumferential incision was made at the cervicovaginal junction with a #10 blade scalpel. The anterior and posterior planes were developed. The cul-de-sac was entered sharply with De Leon scissors and the long weighted speculum was placed. Dissection was carried along the anterior compartment and the anterior cul-de-sac was entered sharply. A right angle retractor reflected the bladder anteriorly. The uterosacral ligaments bilaterally were crossclamped with Michelle clamps. These were suture- ligated with 0 Vicryl. Several additional pedicles and outside were taken up with any clamps and the uterus was delivered vaginally. The 2 sutures of 0 Vicryl which had been placed on the uterosacral ligaments were incorporated into the vaginal angles with the use of a free needle. The median defect on the vaginal cuff was reapproximated with interrupted vertical mattress sutures of 0 Vicryl. The patient had been given 2.5 mils of methylene blue intravenously and cystoscopy was performed with a 5 mm scope and normal saline distention media. Strong efflux of methylene blue was noted from both UOs. The cystoscope was removed. The Hull catheter was replaced. Attention was then turned to the patient's abdomen. The pneumoperitoneum was reestablished. The 10 mm laparoscope was reinserted. A thorough irrigation was performed. There was a small bleeder noted at the vaginal cuff which was cauterized with the LigaSure device. FloSeal was placed along this area. All other sites of dissection were noted to be hemostatic. The abdomen was desufflated. The trochars had been removed under direct visualization. The fascia at the umbilicus was closed with 2 previously placed sutures of 0 Vicryl. All skin incisions were closed with interrupted sutures of 4 Monocryl. Sponge lap and needle counts were correct at the conclusion of the procedure. The patient was transferred to PACU in stable condition.
[2019-02-17] MEDS: HYDROmorphone 2 MG/ML VIAL IVP ×2 (16:47→17:03)
[2019-02-17] MEDS: ACETAMINOPHEN 1,000 MG/100 ML BTL 400 MG IVPB (16:57)
[2019-02-17] MEDS: Ketorolac 30 MG/ML VIAL IVP (18:10)
[2019-02-17] MEDS: Normal Saline Flush 10 ML SYR IV ×3 (18:11→20:42)
[2019-02-17] MEDS: oxyCODONE 5 mg/Acetaminophen 325 mg TAB PO (18:27)
[2019-02-17] MEDS: HYDROmorphone 2 MG/ML VIAL 1 MG IVP (19:47)
[2019-02-17] MEDS: Docusate Sodium 100 MG CAP PO (19:48)
[2019-02-17] MEDS: Ondansetron 4 MG/2 ML VIAL IVP (20:42)
[2019-02-18] MEDS: Normal Saline Flush 10 ML SYR IV ×3 (00:15→13:57)
[2019-02-18] MEDS: Ketorolac 30 MG/ML VIAL IVP ×3 (00:15→13:57)
[2019-02-18] MEDS: HYDROmorphone 2 MG/ML VIAL 1 MG IVP (03:27)
[2019-02-18] MEDS: Ondansetron 4 MG/2 ML VIAL IVP (03:28)
[2019-02-18] MEDS: Lactated Ringers 1,000 ML 125 ML IV (04:05)
[2019-02-18 04:14] VITALS: BP 106/64; PULSE 70; RESP 18; TEMP 37.2; O2SAT 95
--- NOTE | 2019-02-18 07:29 | NUR.NOTE ---
Patient request all four rails to be up, state she feels safer when she is turning from side to side.
[2019-02-18] MEDS: oxyCODONE 5 mg/Acetaminophen 325 mg TAB PO ×3 (07:45→13:57)
[2019-02-18] MEDS: Docusate Sodium 100 MG CAP PO (07:46)
--- NOTE | 2019-02-18 08:25 | PDOC.CMIN ---
- If Service Date Differs Date of service: 02/18/19 Time of Service: 08:25 Care Management Initial Assess REASON FOR HOSPITALIZATION:: menorrhagia PAST MEDICAL HISTORY/PAST SURGICAL HISTORY:: Medical History. Family history of malignant neoplasm of ovary in first degree relative. Menorrhagia (Acute). Calculus of gallbladder without cholecystitis without obstruction (Acute 04/07/18). Depression (Acute 03/18/14). Gastroesophageal reflux disease without esophagitis (Acute 12/20/15). Hepatic steatosis (Acute 04/07/18). BMI 45.0-49.9, adult (Resolved). Surgical History: Oophrectomy, Left (~09/2013). Tooth extraction PREVIOUS FUNCTIONAL STATUS/SOCIAL/FAMILY SUPPORTS:: Korina lives in a single family home in [place]. She lives with her Chivo and their 18 year old daughter and her fiancee. They have 2 other adult daughters who live in the area. 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 She is completely independent with all self care and activities. CURRENT FUNCTIONAL STATUS:: Korina was sitting up in bed when CM came to visit. She was open and friendly and readily engaged in conversation.Korina talked at length about the [employer] where she works.She clearly enjoys her job, stating that everyone is pleasant to work with and that her employer has been very understanding about her illness and flexible with her hours. She expects to be out of work for 4 to 6 weeks and plans to relax by her pool and help her daughter with wedding plans. ADVANCE DIRECTIVES:: None on file at [facility] Has patient been provided with information about the portal?: No Did the patient sign up for the portal?: No ( has Portal) CODE STATUS:: Full Code INSURANCE COVERAGE / FINANCIAL ISSUES:: Medicaid [place] CURRENT HOME/COMMUNITY SERVICES/EQUIPMENT:: none currently PRIMARY CARE PHYSICIAN:: Ravinder Valencia POTENTIAL DISCHARGE NEEDS:: Follow up with surgeon and PCP and discharge plan of care PATIENT/FAMILY EDUCATION NEEDS:: discharge plan, limitations, follow up plan, Ask Me Three ANTICIPATED BARRIERS TO DISCHARGE:: none identified TRANSPORTATION:: via private vehicle with family when ready PLAN:: Korina will be discharged home with no services later today. She will be transported by family via private vehicle. Korina will follow up with her surgeon and her discharge plan of care.
[2019-02-18 08:35] VITALS: BP 114/70; PULSE 75; RESP 20; TEMP 36.8; O2SAT 98
--- NOTE | 2019-02-18 10:10 | INITIAL_ITS ---
- If Service Date Differs Date of service: 02/18/19 Time of Service: 08:25 Care Management Initial Assess REASON FOR HOSPITALIZATION:: menorrhagia PAST MEDICAL HISTORY/PAST SURGICAL HISTORY:: Medical History. Family history of malignant neoplasm of ovary in first degree relative. Menorrhagia (Acute). Calculus of gallbladder without cholecystitis without obstruction (Acute 04/07/18). Depression (Acute 03/18/14). Gastroesophageal reflux disease withou t esophagitis (Acute 12/20/15). Hepatic steatosis (Acute 04/07/18). BMI 45.0- 49.9, adult (Resolved). Surgical History: Oophrectomy, Left (~09/2013). Tooth extraction PREVIOUS FUNCTIONAL STATUS/SOCIAL/FAMILY SUPPORTS:: Korina lives in a single family home in [place]. She lives with her Chivo and their 18 year old daughter and her fiancee. They have 2 other adult daughters who live in the area. 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 She is completely independent with all self care and activities. CURRENT FUNCTIONAL STATUS:: Korina was sitting up in bed when CM came to visit. She was open and friendly and readily engaged in conversation.Korina talked at length about the [employer] where she works.She clearly enjoys her job, stating that everyone is pleasant to work with and that her employer has been very understanding about her illness and flexible with her hours. She expects to be out of work for 4 to 6 weeks and plans to relax by her pool and help her daughter with wedding plans. ADVANCE DIRECTIVES:: None on file at [facility] Has patient been provided with information about the portal?: No Did the patient sign up for the portal?: No ( has Portal) CODE STATUS:: Full Code INSURANCE COVERAGE / FINANCIAL ISSUES:: Medicaid [place] CURRENT HOME/COMMUNITY SERVICES/EQUIPMENT:: none currently PRIMARY CARE PHYSICIAN:: Ravinder Valencia POTENTIAL DISCHARGE NEEDS:: Follow up with surgeon and PCP and discharge plan of care PATIENT/FAMILY EDUCATION NEEDS:: discharge plan, limitations, follow up plan, Ask Me Three ANTICIPATED BARRIERS TO DISCHARGE:: none identified TRANSPORTATION:: via private vehicle with family when ready PLAN:: Korina will be discharged home with no services later today. She will be transported by family via private vehicle. Korina will follow up with her surgeon and her discharge plan of care.
[2019-02-18 15:45] VITALS: BP 109/70; PULSE 65; RESP 18; TEMP 36.9; O2SAT 99
--- NOTE | 2019-02-18 16:28 | PDOC.DSDIS_ITS ---
Discharge Plan Disposition Patient Disposition: HOME Condition: Good Discharge Details Reason For Visit: MENORRHAGIA Admit Date/Time: 02/17/19 15:19 Admit Provider: Steven Zhao Attending Provider: Steven Zhao Primary Care Provider: Ravinder Escalante [facility] Course Hospital Course: Patient admitted and undewent [facility] for menorrhagia and family history of ovarian cancer. Postoperatively she did well and met all postoperative milestones. She was felt suitable for discharge home on POD 1. Home Meds and New Rx's Prescriptions: New oxycodone-acetaminophen 5-325 mg Tablet 1 tab PO Q4H PRN PRNQty: 25 RF: 0 Continued omeprazole 20 MG capsule,delayed release(DR/EC) 20 mg PO DAILY Qty: 90 RF: 3 sertraline [Zoloft] 50 MG tablet 50 mg PO DAILY Qty: 90 RF: 3 nitroglycerin [Nitrostat] 0.4 MG tablet, sublingual 0.4 mg Sublingual Q5 MIN PRN X3 PRN (Reason: Chest Pain) Qty: 100 RF: 0 acetaminophen [Tylenol Extra Strength] 500 MG tablet 1,000 mg PO Q6H PRNQty: 0 RF: 0 ibuprofen 200 MG tablet 2 tab PO Q6H PRNQty: 0 RF: 0 docusate sodium [Colace] 100 mg Capsule 100 mg PO RF: 0 Probiotic Acidophilus 1.5 mg (250 million cell) Capsule PO DAILY RF: 0 Discharge Instructions Instructions: Laparoscopic Hysterectomy (GEN) Stand Alone Forms: Nursing Discharge Form Activity:: No heavy lifting greater than 15-20 pounds. Nothing per vagina. Equipment/Supplies:: No Equipment Needed Diet:: As Tolerated Discharge Orders Discharge Orders: Discharge Order (Routine); Ordered 02/18/19 Ordered By: Steven Zhao
== END 2019-02-18 15:31 | disposition home or self-care (01) ==
LOC: MS 17:36
PROVIDERS: Admitting Provider Obstetrics & Gynecology; PCP Family Medicine; Visit Provider Obstetrics & Gynecology
PROC: 0UT9FZZ Resection of Uterus, Via Natural or Artificial Opening With Percutaneous Endoscopic Assistance (ICD-10-PCS; CPT 58552; principal; 2019-02-17 10:00)
PROC: 0UT9FZZ Resection of Uterus, Via Natural or Artificial Opening With Percutaneous Endoscopic Assistance (ICD-10-PCS; CPT 58670; 2019-02-17 10:00)
DX: N92.0 Excessive and frequent menstruation with regular cycle (principal); D25.0 Submucous leiomyoma of uterus; N80.0 Endometriosis of uterus; N83.291 Other ovarian cyst, right side; Z80.3 Family history of malignant neoplasm of breast; Z80.41 Family history of malignant neoplasm of ovary
CPT/HCPCS: 58552; 52000; 88305; 88342; 88307; G0378; J0131; J0690; J1100; J1885; J2060; J2405; J3010

== ENCOUNTER 2019-02-26 12:13 | Outpatient (REF) | payer MEDICAID, SELFPAY ==
[2019-03-01 11:38] LABS: HSV 1 DNA Result Negative; HSV 2 DNA Result Negative
== END 2019-02-26 12:33 ==
LOC: LBN 12:13
PROVIDERS: PCP Family Medicine; Visit Provider Obstetrics & Gynecology
DX: B37.0 Candidal stomatitis (principal); Z11.59 Encounter for screening for other viral diseases
CPT/HCPCS: 87529; 86695; 86696

== ENCOUNTER 2020-09-27 09:36 | Outpatient (CLI) | payer MEDICAID, SELFPAY ==
[2020-09-28 14:06] LABS: COVID-19 RT-PCR UVMMC Result Negative (Negative)
== END 2020-09-27 09:37 | disposition home or self-care (01) ==
LOC: LBO 09:36
PROVIDERS: PCP Family Medicine; Visit Provider Family Medicine
DX: Z20.822 Contact with and (suspected) exposure to COVID-19 (principal)
CPT/HCPCS: U0003

== ENCOUNTER 2020-10-25 15:47 | Outpatient (REF) | payer MEDICAID, SELFPAY ==
[2020-10-25 13:42] LABS: Abs Immature Grans 0.02 10^3/uL (0.0-0.06); Absolute Basophil Count 0.02 10^3/uL (0.0-0.2); Absolute Eosinophil Count 0.11 10^3/uL (0.0-0.7); Absolute Lymphocyte Count 1.49 10^3/uL (1.2-3.4); Absolute Monocyte Count 0.37 10^3/uL (0.1-0.8); Absolute Neutrophil Count 3.79 10^3/uL (1.2-6.7); Basophils % 0.3; Eosinophils % 1.9; HGB 14.9 g/dL (11.2-15.7); Immature Grans % 0.3; Lymphocytes % 25.7; MCH 28.9 pg (27.0-33.0); MCHC 33.1 % (32.0-36.0); MCV 87.2 fL (80-95); MPV 10.6 fL (8.0-11.0); Monocytes % 6.4; Neutrophils % 65.4; Nucleated RBC 0 %; Platelet Count 256 10^3/uL (130-400); RBC 5.16 10^6/uL (3.93-5.22); RDW 13.1 % (11.7-14.6); RDW-SD 42.1 fL
[2020-10-25 13:59] LABS: ALT 46 U/L (14-59); AST 25 U/L (15-37); Albumin 3.5 g/dL (3.4-5.0); Alkaline Phosphatase 82 U/L (46-116); BUN 12 mg/dL (7-18); Bilirubin, Total 0.5 mg/dL (0.2-1.0); CREATININE 0.8 mg/dL (0.55-1.02); Chloride 107 mmol/L (98-107); Glucose 98 mg/dL (74-106); Potassium 4.4 mmol/L (3.5-5.1); Sodium 142 mmol/L (136-145); Total Protein 6.8 g/dL (6.4-8.2)
[2020-10-25 14:07] LABS: C-Reactive Protein 1.07 mg/dL (0.0-0.3)
[2020-10-25 21:55] LABS: Rheumatoid Factor <8.6 IU/mL (<12.0)
[2020-10-25 22:00] LABS: ESR 21 mm/hr (<or=20)
[2020-10-26 10:27] LABS: Lyme Ab w Rflx to Lyme Confirm Negative (Negative)
[2020-10-30 12:52] LABS: Methylmalonic Acid 0.23 nmol/mL (<=0.40)
== END 2020-10-25 15:48 | disposition home or self-care (01) ==
LOC: LBN 15:47
PROVIDERS: PCP Family Medicine; Visit Provider Emergency Medicine
DX: M25.59 Pain in other specified joint (principal); M25.561 Pain in right knee; M25.562 Pain in left knee; E66.9 Obesity, unspecified; Z51.81 Encounter for therapeutic drug level monitoring
CPT/HCPCS: 80053; 80186; 85652; 85025; 86140; 86431; 86618

== ENCOUNTER 2020-11-01 10:33 | Outpatient (CLI) | payer MEDICAID, SELFPAY ==
[2020-11-02 13:18] LABS: COVID-19 RT-PCR UVMMC Result Negative (Negative)
== END 2020-11-01 10:34 | disposition home or self-care (01) ==
LOC: LBO 10:34
PROVIDERS: PCP Family Medicine; Visit Provider Family Medicine
DX: Z20.822 Contact with and (suspected) exposure to COVID-19 (principal)
CPT/HCPCS: U0003

== ENCOUNTER 2020-12-04 03:35 | Outpatient (CLI) | payer MEDICAID, SELFPAY ==
[2020-12-04 10:54] LABS: Source Nasal/Nares
[2020-12-04 16:19] LABS: COVID-19 PCR Negative (Negative)
== END 2020-12-04 03:36 | disposition home or self-care (01) ==
LOC: LBO 03:35
PROVIDERS: PCP Emergency Medicine; Visit Provider Surgery
DX: Z20.822 Contact with and (suspected) exposure to COVID-19 (principal); Z01.818 Encounter for other preprocedural examination
CPT/HCPCS: 87635

== ENCOUNTER 2021-02-05 14:29 | Emergency (ER) | payer MEDICAID, SELFPAY ==
--- NOTE | 2021-02-05 14:45 | DI.RAD_ITS ---
Exam(s) XR FOOT LT COMPLETE EXAM: XR FOOT LT COMPLETE CLINICAL HISTORY: pain. TECHNIQUE: 2D digital imaging was performed. COMPARISON: No exams were available for comparison FINDINGS: There is no evidence of acute fracture nor diastasis of the Lisfranc joint. No radiopaque foreign elmo dy. On the lateral view we note multiple calcific densities in the distal Achilles tendon just above the insertion site. There is also a moderate size inferior calcaneal spur noted. IMPRESSION: No acute fracture. No radiopaque foreign body. Achilles tendon findings as described above. DATA REPOSITORY: RADIATION DOSE DELIVERED:
[2021-02-05 14:50] VITALS: BP 151/83; PULSE 85; RESP 20; TEMP 36.7; O2SAT 94
--- NOTE | 2021-02-05 15:39 | W.ED.GENAD ---
Discharge Plan Disposition Patient Disposition: HOME Condition: Good Discharge Details Clinical Impression: Pain in Achilles tendon, Heel pain Primary Care Provider: Hesham Ny ED Provider: Destinee Nicholson Home Meds and New Rx's Prescriptions: Continued bupropion HCl 150 mg tablet extended release 24 hr 150 mg PO QAM Qty: 30 RF: 11 pantoprazole [Protonix] 40 mg tablet,delayed release (DR/EC) 40 mg PO DAILY Qty: 30 RF: 12 acetaminophen [Tylenol Extra Strength] 500 MG tablet 1,000 mg PO Q6H PRNQty: 0 RF: 0 ibuprofen 200 MG tablet 2 tab PO Q6H PRNQty: 0 RF: 0 Discharge Instructions Instructions: Leg Pain (ED) Additional Instructions: Ice, ibuprofen and Tylenol for pain control Wear the boot as instructed and follow-up with your primary care physician Return earlier should you have new or worsening complaints Weightbearing as tolerated Please follow-up with Dr. Ny Stand Alone Forms: Work Release Discharge Data Discharge Date/Time-TO BE ENTERED AT DEPARTURE: 02/05/21 17:36 Medical Decision Making X-ray shows elevation of calcification Achilles tendon insertion site, no additional acute findings per radiology interpretation reviewed Given a boot and referral back to orthopedics We will take ibuprofen and Tylenol as needed for pain No tenderness to calf, no indication of DVT Patient expresses understanding Differential Diagnosis Differential Diagnosis: Fracture, strain, Achilles tendinitis, hematoma Medical Records Medical records reviewed: Yes I reviewed the patient's medical records. HPI General Mode of arrival: ambulatory. Date/Time Provider Initiated Documentation: 02/05/21 14:52. Limitations to Documentation: no limitations. Information obtained by: dasiain. HPI Narrative: This 45-year-old female presents with left Achilles pain. She denies any additional complaints. Pain is predominantly at the insertion point for her Achilles tendon. She states that she stepped into a hole approximately 2 feet deep and felt a popping sensation. Injury occurred last evening reportedly. Exacerbated with flexion extension. Denies any additional complaints at this time. Denies any sensation change. Related Data Home Medications Medication Instructions Recorded Confirmed acetaminophen [Tylenol Extra 1,000 mg PO Q6H PRN #0 04/04/18 02/05/21 Strength] ibuprofen 2 tab PO Q6H PRN #0 04/04/18 02/05/21 bupropion HCl 150 mg 24 hr tablet, 150 mg PO QAM #30 tab 02/22/20 02/05/21 extended release pantoprazole 40 mg tablet,delayed 40 mg PO DAILY #30 tab 11/13/20 02/05/21 release Previous Rx's Medication Instructions Recorded acetaminophen [Tylenol Extra 1,000 mg PO Q6H PRN #0 04/04/18 Strength] ibuprofen 2 tab PO Q6H PRN #0 04/04/18 bupropion HCl 150 mg 24 hr tablet, 150 mg PO QAM #30 tab 02/22/20 extended release pantoprazole 40 mg tablet,delayed 40 mg PO DAILY #30 tab 11/13/20 release Allergies Allergy/AdvReac Type Severity Reaction Status Date / Time morphine AdvReac Intermediate Nausea, Verified 02/06/21 13:54 vomiting sertraline AdvReac Mild felt like Verified 02/06/21 13:54 a zombie erythromycin base AdvReac DIARRHEA Verified 02/06/21 13:54 Sulfa (Sulfonamide AdvReac DIARRHEA Verified 02/06/21 13:54 Antibiotics) General Stated Complaint: Orthopedic MUKUL: 4 Review of Systems Narrative: Review of systems obtained x3 aside from where indicated in HPI [facility] Medical History (Updated 02/06/21 @ 14:04 by Hesham Ny DO) Achilles tendon injury Arthritis BMI 45.0-49.9, adult 12/2014 = 47.1kg/m2 Calculus of gallbladder without cholecystitis without obstruction (04/07/18) Depression (03/18/14) Dysphagia Family history of malignant neoplasm of ovary in first degree relative mother with stage 4 ovarian CA. 9mo after dx. Gastroesophageal reflux disease without esophagitis (12/20/15) Hepatic steatosis (04/07/18) History of kidney infection Pt states frequent infection Kidney stone Menorrhagia Surgical History (Updated 12/04/20 @ 12:44 by Fabian Musa) Hx of knee surgery Oophrectomy, Left (~09/2013) [facility] [place] Bautista. Benign path. Tooth extraction wisdom teeth. Family History Mother Diabetes Personal history of malignant neoplasm Dx with stage 4 ovarian CA. Neoadjuvant chemo, interval debulking then hospice. 9mo after Dx. Father Heart disease Hyperlipidemia Sister Personal history of malignant neoplasm CERVICAL Grandfather No problems noted. Grandfather No problems noted. Grandmother No problems noted. Grandmother No problems noted. Daughter Depression Asthma Daughter No problems noted. 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 Duration: 30-45 minutes/day Frequency: 3-4 times per week Seatbelt use: always Do you feel safe at home: Yes Do you feel safe in your relationship?: Yes Female Reproductive History Menstrual control method: permanent sterilization History History 5 Para 3 Hx # Term Pregnancies Multiple births Hx # Pregnancies Ectopic pregnancies AB induced Hx Number of Living Children AB spontaneous Exam Extrem Other: Tenderness and swelling to Achilles insertion site, no palpable fracture crepitus, distal pulses intact, sensation intact distally, no tenderness to left knee Course Vital Signs Vital signs: Vital Signs Temperature 36.7 C 02/05/21 14:50 Pulse 85 02/05/21 14:50 Respiratory Rate 20 02/05/21 14:50 Blood Pressure 151/83 H 02/05/21 14:50 Pulse Oximetry 94 02/05/21 14:50 Temperature 36.7 C 02/05/21 14:50 Temperature Source Skin 02/05/21 14:50 Pulse 85 02/05/21 14:50 Respiratory Rate 20 02/05/21 14:50 Respiratory Effort Non-Labored 02/05/21 14:53 Blood Pressure 151/83 H 02/05/21 14:50 Blood Pressure Position Sitting 02/05/21 14:50 Pulse Oximetry 94 02/05/21 14:50 Oxygen Delivery Method Room Air 02/05/21 14:50 Oxygen Flow Rate 0 02/05/21 14:50 Pain Level 6 02/05/21 14:50
== END 2021-02-05 17:36 | disposition home or self-care (01) ==
PROVIDERS: Emergency Provider Physician Assistant; PCP Emergency Medicine
DX: M25.572 Pain in left ankle and joints of left foot (principal); M79.672 Pain in left foot
CPT/HCPCS: 29515; 99283; 73630

== ENCOUNTER 2021-06-10 14:29 | Emergency (ER) | payer MEDICAID, SELFPAY ==
[2021-06-10 14:51] VITALS: BP 151/88; PULSE 78; RESP 16; TEMP 36.7; O2SAT 99
--- NOTE | 2021-06-10 15:15 | DI.CT_ITS ---
Exam(s) CT CHEST/ABD/PEL W EXAM: CT CHEST/ABD/PEL W CLINICAL HISTORY: RUQ R thoracic anterior pain after trauma. TECHNIQUE: Imaging Protocol: Axial computed tomography images with coronal and sagittal reformatted images were created and reviewed CONTRAST MATERIAL: Intravenous: Omnipaque 350 Contrast volume:100 ml Oral: None COMPARISON: CT RENAL COLIC WO CONTRAST from 04/04/2018 FINDINGS: CHEST: LUNGS: Clear. No infiltrates, pulmonary contusions nor pleural effusions. No pneumothorax. There a re no significant focal findings in the trachea and mainstem bronchi.. MEDIASTINUM: No evidence of mediastinal hematoma. No intrathoracic adenopathy. No axillary adenopat hy. Visualized thyroid unremarkable. CARDIAC: Heart size is normal. There is no pericardial effusion.Thoracic aorta appears unremarkable. Anatomic variant here in that the left vertebral artery originates as an independent vessel off the aortic arch. OSSEOUS: No fractures. No significant osseous lesions. ABDOMEN: There is no ascites. LIVER: Liver is hypodense implying steatosis. No evidence of a patent laceration. No incidental foc al hepatic lesions. GALLBLADDER/BILIARY: There gallstones in the gallbladder neck. No gallbladder wall edema nor pericho lecystic fluid. CBD is not dilated. PANCREAS: No evidence of pancreatic mass nor dilatation of the pancreatic duct. SPLEEN: Spleen size upper normal. Small splenule noted medial to the splenic hilum. No splenic lace rations. No Sheryl splenic fluid. No intrasplenic lesions. Splenic and portal veins are patent. ADRENALS: There are no significant adrenal masses. KIDNEYS: No evidence of renal laceration or subcapsular hematoma. No incidental cysts nor solid caitlyn l masses. However, there is a nonobstructive 4 millimeter calculus at the midpole level of the right kidney, similar to March 2018. No calculi seen in the opposite-left kidney. No hydronephrosis. N o hydroureter. No obvious abnormality of the urinary bladder. ABDOMINAL AORTA: Intact. No trauma sequelae. LYMPH NODES: There is no retroperitoneal nor paraaortic adenopathy. ABDOMINAL WALL: No evidence of significant anterior abdominal wall nor inguinal hernia. GI: No evidence of bowel wall nor mesenteric hematoma. No bowel obstruction. No free air. PELVIS: LYMPH NODES: There is no intrapelvic nor inguinal adenopathy. GI: No evidence of appendicitis.No evidence of sigmoid diverticulitis. URINARY BLADDER: No calculi nor masses evident REPRODUCTIVE: The uterus is surgically absent. Ovaries are not identified. No free fluid in the pel vis. OSSEOUS: No pelvic fractures. Bilateral pars defects at L4 level with anterolisthesis L4 upon L5 and advanced disc space narrowing at this level. There are no pars defects nor listhesis evident at L5 level. IMPRESSION: 1. No evidence of acute significant trauma sequelae in the chest, abdomen, and pelvis. 2. Gallstones incidentally noted in the gallbladder neck. No evidence of acute cholecystitis nor dil atation of the biliary tree. 3. Hepatic steatosis noted. Correlation appropriate hepatic blood work recommended 4. Nonobstructive calculus in the midpole level of the right kidney, as was also evident on the prior CT scan March 2018. No other significant renal findings. Anterolisthesis L4 upon L5 due to bilateral pars defects. This is an incidental finding. RADIATION DOSE DELIVERED: 2,110.43mGy.cm Total DLP DATA REPOSITORY: All CT scans at this facility are submitted to the National Radiology Data Registry (NRDR) Dose Index Registry (DIR) with the [employer] (ACR). RADIATION OPTIMIZATION: All CT scans at this facility use at least one of these dose optimization te chniques: automated exposure control; mA and/or kV adjustment per patient size (includes targeted exa ms where dose is matched to clinical indication); or iterative reconstruction.
--- NOTE | 2021-06-10 15:25 | W.ED.GENAD ---
Discharge Plan Disposition Patient Disposition: HOME Condition: Improving Discharge Details Clinical Impression: Contusion of chest wall, Abdominal wall contusion Primary Care Provider: Hesham Ny ED Provider: Arnol Carreon Home Meds and New Rx's Prescriptions: Continued pantoprazole [Protonix] 40 mg tablet,delayed release (DR/EC) 40 mg PO DAILY Qty: 30 RF: 12 bupropion HCl 150 mg tablet extended release 24 hr 150 mg PO QAM Qty: 30 RF: 11 acetaminophen [Tylenol Extra Strength] 500 MG tablet 1,000 mg PO Q6H PRNQty: 0 RF: 0 ibuprofen 200 MG tablet 2 tab PO Q6H PRNQty: 0 RF: 0 Trulicity 0.75 mg/0.5 mL pen injector 0.75 mg SUBCUT .WEEKLY RF: 0 Discharge Instructions Instructions: Contusion in Adults (ED) Additional Instructions: Your CT images did not show organ or bone injury. You do appear to have persistent fatty liver. You also were noted to have gallstones. Continue ibuprofen and/or Tylenol as needed for pain. Return to the ER for any acute concerns. Medical Decision Making 45-year-old female states she was injured on Friday night when she and her embraced on the front lawn, she lost her footing and fell backwards onto the gravel driveway and her 230 pound fell on top of her. She did not lose consciousness. She has not had a headache or neck pain. No significant back pain. She has had persistent right upper quadrant and right lower anterior thoracic pain is and worse with movement for the past 2 days. No change to bowel or bladder habits. No numbness, weakness or tingling. Patient is tender overlying the right upper quadrant and right lower thoracic cage. Most likely contusion but must rule underlying rib fracture, bowel injury, hepatic injury. Patient IV access established, screening labs obtained and referred for imaging studies. Labs are reassuring, see below. CT scan of the abdomen and pelvis show no acute visceral or bony injury. There is note of possible fatty infiltration of the liver which is previously known to the patient. Consistent with contusion and strain. Discussed with patient she is stable for discharge to home. Lab Data Lab results reviewed: Yes I reviewed the patient's lab results. Labs: Laboratory Results - last 24 hr 06/10/21 06/10/21 15:31 15:31 WBC 7.63 RBC 5.18 Hgb 14.9 Hct 46.3 H MCV 89.4 MCH 28.8 MCHC 32.2 RDW 13.1 Plt Count 285 MPV 9.2 Immature Gran % 0.4 Neutrophils % 69.0 Lymphocytes % 21.5 Monocytes % 6.9 Eosinophils % 1.8 Basophils % 0.4 Nucleated RBC % 0 Absolute Neutrophils 5.26 Absolute Lymphocytes 1.64 Absolute Monocytes 0.53 Absolute Eosinophils 0.14 Absolute Basophils 0.03 Sodium 143 Potassium 4.1 Chloride 105 Carbon Dioxide 29.9 Anion Gap 8.1 BUN 9 Creatinine 0.8 Estimated GFR/1.73 m2 >= 60.00 Glucose 81 Calcium 8.8 Total Bilirubin 0.5 AST 31 ALT 55 Alkaline Phosphatase 83 Total Protein 7.6 Albumin 3.9 HPI General Mode of arrival: ambulatory. Date/Time Provider Initiated Documentation: 06/10/21 14:32. Limitations to Documentation: no limitations. Information obtained by: patient. History of Present Illness 45 year old F presents to the emergency department with the chief complaint of Trauma Friday evening, persistent right lower rib cage and right upper AP, described as moderate, Quality is described as dull, Patient started experiencing this day(s) and it has been intermittent. Rest improves symptom(s), Movement worsens symptoms . Patient notes denies fever/chills, loss of appetite and nausea/vomiting. Patient did receive the following treatments prior to arrival, NSAID Related Data Home Medications Medication Instructions Recorded Confirmed acetaminophen [Tylenol Extra 1,000 mg PO Q6H PRN #0 04/04/18 06/10/21 Strength] ibuprofen 2 tab PO Q6H PRN #0 04/04/18 06/10/21 pantoprazole 40 mg tablet,delayed 40 mg PO DAILY #30 tab 11/13/20 06/10/21 release bupropion HCl 150 mg 24 hr tablet, 150 mg PO QAM #30 tab 04/26/21 06/10/21 extended release Trulicity 0.75 mg SUBCUT .WEEKLY 06/10/21 06/10/21 Previous Rx's Medication Instructions Recorded acetaminophen [Tylenol Extra 1,000 mg PO Q6H PRN #0 04/04/18 Strength] ibuprofen 2 tab PO Q6H PRN #0 04/04/18 pantoprazole 40 mg tablet,delayed 40 mg PO DAILY #30 tab 11/13/20 release bupropion HCl 150 mg 24 hr tablet, 150 mg PO QAM #30 tab 04/26/21 extended release Allergies Allergy/AdvReac Type Severity Reaction Status Date / Time morphine AdvReac Intermediate Nausea, Verified 06/10/21 14:57 vomiting sertraline AdvReac Mild felt like Verified 06/10/21 14:57 a zombie erythromycin base AdvReac DIARRHEA Verified 06/10/21 14:57 Sulfa (Sulfonamide AdvReac DIARRHEA Verified 06/10/21 14:57 Antibiotics) General Stated Complaint: Trauma MUKUL: 3 Review of Systems Narrative: No loss of consciousness. No headache or neck pain. No significant back pain. No shortness of breath. 6 systems reviewed and otherwise negative [facility] Medical History Achilles tendon injury Arthritis BMI 45.0-49.9, adult 12/2014 = 47.1kg/m2 Calculus of gallbladder without cholecystitis without obstruction (04/07/18) Depression (03/18/14) Dysphagia Family history of malignant neoplasm of ovary in first degree relative mother with stage 4 ovarian CA. 9mo after dx. Gastroesophageal reflux disease without esophagitis (12/20/15) Hepatic steatosis (04/07/18) History of kidney infection Pt states frequent infection Kidney stone Menorrhagia Surgical History (Updated 12/04/20 @ 12:44 by Fabian Musa) Hx of knee surgery [place], Left (~09/2013[place] [facility] [place] Benign path. Tooth extraction wisdom teeth. Family History Mother Diabetes Personal history of malignant neoplasm Dx with stage 4 ovarian CA. Neoadjuvant chemo, interval debulking then hospice. 9mo after Dx. Father Heart disease Hyperlipidemia Sister Personal history of malignant neoplasm CERVICAL Grandfather No problems noted. Grandfather No problems noted. Grandmother No problems noted. Grandmother No problems noted. Daughter Depression Asthma Daughter No problems noted. 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 Pleasant, well groomed, interactive. HEAD: Normocephalic, atraumatic ENT: Mucous membranes moist, oropharynx unremarkable, External ear exam unremarkable EYES: PERRL, EOMI NECK: Full ROM, no BRYSON, no menigismus CHEST/RESP: Right lower anterior rib cage shift manager to palpation, no crepitus, clear to auscultation bilateral, no wheeze/rhonchi/rales CARDIOVASCULAR: RRR, no murmur, rub raudel. 2+ Rad pulse bilateral ABDOMEN: Soft, right upper quadrant tender to percussion, no mass. +Bowel sounds EXT: Full ROM, no edema, no rash Neuro: Grossly normal neurologic exam, conversant, interactive. Psych: Speech fluent, thoughts congruent, affect normal Course Vital Signs Vital signs: Vital Signs Temperature 36.7 C 06/10/21 14:51 Pulse 78 06/10/21 14:51 Respiratory Rate 16 06/10/21 14:51 Blood Pressure 151/88 H 06/10/21 14:51 Pulse Oximetry 99 06/10/21 14:51 Temperature 36.7 C 06/10/21 14:51 Temperature Source Skin 06/10/21 14:51 Pulse 78 06/10/21 14:51 Respiratory Rate 16 06/10/21 14:51 Respiratory Effort 06/10/21 15:07 Respiratory Depth Normal 06/10/21 15:07 Respiratory Pattern Normal 06/10/21 15:07 Blood Pressure 151/88 H 06/10/21 14:51 Blood Pressure Position Sitting 06/10/21 14:51 Pulse Oximetry 99 06/10/21 14:51 Oxygen Delivery Method Room Air 06/10/21 14:51 Oxygen Flow Rate 0 06/10/21 14:51 Pain Level 7 06/10/21 15:07
[2021-06-10 15:39] LABS: Abs Immature Grans 0.03 10^3/uL (0.0-0.06); Absolute Basophil Count 0.03 10^3/uL (0.0-0.2); Absolute Eosinophil Count 0.14 10^3/uL (0.0-0.7); Absolute Lymphocyte Count 1.64 10^3/uL (1.2-3.4); Absolute Monocyte Count 0.53 10^3/uL (0.1-0.8); Absolute Neutrophil Count 5.26 10^3/uL (1.2-6.7); Basophils % 0.4; Eosinophils % 1.8; HCT 46.3 % (36.0-46.0); HGB 14.9 g/dL (11.2-15.7); Immature Grans % 0.4; Lymphocytes % 21.5; MCH 28.8 pg (27.0-33.0); MCHC 32.2 % (32.0-36.0); MCV 89.4 fL (80-95); MPV 9.2 fL (8.0-11.0); Monocytes % 6.9; Nucleated RBC 0 %; Platelet Count 285 10^3/uL (130-400); RBC 5.18 10^6/uL (3.93-5.22); RDW 13.1 % (11.7-14.6); RDW-SD 43.1 fL; WBC 7.63 10^3/uL (4.4-10.8)
[2021-06-10 15:52] LABS: ALT 55 U/L (14-59); AST 31 U/L (15-37); Albumin 3.9 g/dL (3.4-5.0); Alkaline Phosphatase 83 U/L (46-116); Anion Gap 8.1 mmol/L (3-11); BUN 9 mg/dL (7-18); Bilirubin, Total 0.5 mg/dL (0.2-1.0); CO2 29.9 mmol/L (21.0-32.0); CREATININE 0.8 mg/dL (0.55-1.02); Calcium 8.8 mg/dL (8.5-10.1); Chloride 105 mmol/L (98-107); Glucose 81 mg/dL (74-106); Potassium 4.1 mmol/L (3.5-5.1); Sodium 143 mmol/L (136-145); Total Protein 7.6 g/dL (6.4-8.2)
[2021-06-10] MEDS: Normal Saline - Diluent 50 ML VIAL IV (16:02)
[2021-06-10] MEDS: Omnipaque 350 MG/ML 100 ML BTL IJ (16:03)
[2021-06-10] MEDS: Normal Saline Flush 10 ML SYR IVP (16:05)
[2021-06-10 16:43] VITALS: BP 106/62; PULSE 67; RESP 18; TEMP 36.4; O2SAT 100
--- NOTE | 2021-06-10 16:49 | DI.VRAD_ITS ---
PROCEDURE INFORMATION: Exam: CT Chest With Contrast; Diagnostic Exam date and time: 06/10/2021 3:25 PM Age: 45 years old Clinical indication: Injury or trauma; Fall and other: Ruq R thoracic anterior pain after trauma; Blunt trauma (contusions or hematomas) TECHNIQUE: Imaging protocol: Diagnostic computed tomography of the chest with contrast. 3D rendering (Not supervised by radiologist): MIP and/or 3D reconstructed images were created by the technologist. Contrast material: OMNIPAQUE 350; Contrast volume: 100 ml; Contrast route: INTRAVENOUS (IV); COMPARISON: US PELVIS TRANSVAGINAL 12/10/2018 3:16 PM FINDINGS: Thyroid: Thyroid gland partially excluded from view but grossly unremarkable through its visualized portion. Lungs: No pulmonary laceration contusion, or consolidation. Pleural spaces: No pleural effusion or pneumothorax. Heart: Normal sized heart. Aorta: No thoracic aortic aneurysm or dissection. Lymph nodes: No pathologically enlarged mediastinal or hilar lymph nodes. Bones/joints: No acute fracture seen among the bones of the chest. Spinal degenerative change with anterior osteophytes at multiple levels. Soft tissues: No gross soft tissue mass or fluid collection seen in the chest wall. IMPRESSION: No acute visceral or bony injury seen in the chest. PROCEDURE INFORMATION: Exam: CT Abdomen And Pelvis With Contrast Exam date and time: 06/10/2021 3:25 PM Age: 45 years old Clinical indication: Injury or trauma; Fall and other: Ruq R thoracic anterior pain after trauma; Blunt trauma (contusions or hematomas) TECHNIQUE: Imaging protocol: Computed tomography of the abdomen and pelvis with contrast. 3D rendering (Not supervised by radiologist): MIP and/or 3D reconstructed images were created by the technologist. Contrast material: OMNIPAQUE 350; Contrast volume: 100 ml; Contrast route: INTRAVENOUS (IV); COMPARISON: US PELVIS TRANSVAGINAL 12/10/2018 3:16 PM FINDINGS: Liver: Possible fatty infiltration of the liver, difficult to confidently diagnose by CT imaging after administration of intravenous contrast. Gallbladder and bile ducts: Moderate gallbladder distention. Gallstones in the gallbladder neck. No biliary dilatation. Pancreas: Normal appearing pancreas. Spleen: Normal appearing spleen. Adrenal glands: Normal appearing adrenal glands. Kidneys and ureters: Nonobstructing 5 mm x 8 mm right and 1 mm x 2 mm left-sided renal calculi versus early excretion of contrast material. No hydronephrosis. No obstructing ureteral stones Stomach and bowel: No oral contrast. Stomach partially decompressed. No small bowel dilatation to suggest obstruction. Normal-appearing colon. No evidence of diverticulitis or colitis. Appendix: Normal appendix. Intraperitoneal space: No gross ascites or free air. Vasculature: Normal caliber abdominal aorta. Lymph nodes: No pathologically enlarged mesenteric, retroperitoneal, or pelvic sidewall lymph nodes. Urinary bladder: Normal appearing urinary bladder. Reproductive: Prior hysterectomy. Ovaries not identified, obscured if present. Correlation with surgical history recommended. Bones/joints: No acute fracture seen among the bones of the abdomen or pelvis. Bilateral spondylolysis at L4 with grade 1 anterolisthesis of L4 on L5. Prominent degeneration of the L4-L5 disc and moderate bilateral L4-L5 foraminal narrowing. Soft tissues: Tiny fat-containing ventral hernia at the umbilicus, doubtful clinical significance. IMPRESSION: 1. No acute visceral or bony injury seen in the abdomen or pelvis. 2. Possible fatty infiltration of the liver, difficult to confidently diagnose by CT imaging after administration of intravenous contrast. 3. Gallstones. 4. Bilateral spondylolysis at L4 with grade 1 anterolisthesis of L4 on L5. Dictated and Authenticated by: Elliott Wright MD. Ordering:YULISSA Ambrose MD
[2021-06-10 17:06] VITALS: BP 127/74; PULSE 69; RESP 16; TEMP 36.4; O2SAT 98
== END 2021-06-10 17:09 | disposition home or self-care (01) ==
PROVIDERS: Emergency Provider Emergency Medicine; PCP Emergency Medicine
DX: S30.1XXA Contusion of abdominal wall, initial encounter (principal); S20.211A Contusion of right front wall of thorax, initial encounter; W18.39XA Other fall on same level, initial encounter; W23.0XXA Caught, crushed, jammed, or pinched between moving objects, initial encounter
CPT/HCPCS: 36415; 74177; 80053; 99285; 71260; 85025; 99284; J3490

== ENCOUNTER 2022-05-30 14:52 | Outpatient (REF) | payer MEDICAID, SELFPAY ==
[2022-05-31 15:42] LABS: Chlamydia Result Negative (Negative); GC Result Negative (Negative)
== END 2022-05-30 14:53 | disposition home or self-care (01) ==
LOC: LBN 14:52
PROVIDERS: PCP Nurse Practitioner Family; Visit Provider Obstetrics & Gynecology
DX: Z71.1 Person with feared health complaint in whom no diagnosis is made (principal); Z11.3 Encounter for screening for infections with a predominantly sexual mode of transmission
CPT/HCPCS: 87491; 87591

== ENCOUNTER 2022-09-24 10:04 | Outpatient (REF) | payer MEDICAID, SELFPAY | END 2022-09-24 10:05 | disposition home or self-care (01) | LOC: LBN 10:04 | PROVIDERS: PCP Nurse Practitioner Family; Visit Provider Nurse Practitioner Family | DX: R30.0 Dysuria (principal); N89.8 Other specified noninflammatory disorders of vagina | CPT/HCPCS: 87480; 87510; 87660 ==

== ENCOUNTER 2022-11-18 01:23 | Outpatient (CLI) | payer MEDICAID, SELFPAY ==
--- NOTE | 2022-11-18 | DI.MRI_ITS ---
Exam(s) MR LOWER JOINT LT WO EXAM: MR LOWER JOINT LT WO CLINICAL HISTORY: LEFT KNEE PAIN M25.562. TECHNIQUE: Multiplanar multisequence MRI was performed. COMPARISON: MR MRI L LOWER JOINT WO CONT from 12/19/2014 CR XR KNEE 4 VIEW LEFT from 11/05/2022 FINDINGS: BONES: There is no fracture or contusion pattern. JOINTS: A small joint effusion is present. Articular cartilage: Patellofemoral joint: Articular cartilage is unremarkable. Medial femoral tibial joint: There is cartilage thinning extending down to bone at the medial tibial plateau with small focal areas of high signal in the subcortical bone consistent with degenerative c hanges. Mild periarticular spurring. Lateral femoral tibial joint: Articular cartilage is unremarkable. TENDONS: Extensor mechanism: Unremarkable. Medial retinaculum: Unremarkable. Lateral retinaculum: Unremarkable. Popliteus: Unremarkable. MUSCLES: Unremarkable. MENISCI: The medial meniscus is diminutive which could be secondary to postsurgical and/or degenerati ve changes. And diminutive appearance on the prior exam. The lateral meniscus is unremarkable. SOFT TISSUES: Small Richey's cyst. LIGAMENTS: Anterior Cruciate: Some fluid within ACL but no evidence focal tear. No change in appearance from pr ior. Posterior Cruciate: Unremarkable. Medial Collateral:Unremarkable. Lateral Collateral: Unremarkable. IMPRESSION: Diminutive appearance of the medial meniscus which could be secondary to combination of degenerative and postsurgical changes. Increased signal changes in the medial meniscus since the previous exam. No discrete focal tear visible. There has been significant interval cartilage loss and degenerative m edial femoral tibial joint. DATA REPOSITORY:
== END 2022-11-18 01:43 ==
LOC: DI 01:24
PROVIDERS: PCP Nurse Practitioner Family; Visit Provider Physician Assistant
DX: M25.562 Pain in left knee (principal); M25.462 Effusion, left knee; M71.22 Synovial cyst of popliteal space [Baker], left knee; M25.862 Other specified joint disorders, left knee
CPT/HCPCS: 73721

== ENCOUNTER 2024-03-03 07:08 | Day surgery (SDC) | payer MEDICAID, SELFPAY ==
--- NOTE | 2024-03-02 20:01 | W.PM.DSUDISC ---
Date of service: 03/03/24 Time of Service: 09:36 Discharge Plan Disposition Patient Disposition: Home Condition: Good Discharge Details Reason For Visit: EGD and colonoscopy Attending Provider: Murray Garcia Primary Care Provider: Jason Rodríguez Home Meds and New Rx's Prescriptions: Continued meloxicam 7.5 mg tablet 7.5 mg PO DAILY Qty: 90 3RF Trulicity 0.75 mg/0.5 mL pen injector 3 mg SUBCUT .WEEKLY sertraline 50 mg tablet 50 mg PO DAILY Qty: 90 3RF omeprazole 20 mg capsule,delayed release(DR/EC) 20 mg PO DAILY Qty: 90 3RF acetaminophen [Tylenol Extra Strength] 500 MG tablet 1,000 mg PO Q6H PRNQty: 0 0RF ibuprofen 200 MG tablet 2 tab PO Q6H PRNQty: 0 0RF Discontinued bisacodyl [Dulcolax (bisacodyl)] 5 mg tablet,delayed release (DR/EC) 5 mg PO ONCE Qty: 4 0RF Rx Instructions: Take per colonoscopy instructions provided by ordering providers office polyethylene glycol 3350 17 gram/dose powder 17 g PO ONCE Qty: 238 0RF Rx Instructions: Take per colonoscopy instructions provided by ordering providers office Discharge Instructions Additional Instructions: Korina was very nice meeting you in the hospital today, and I hope the procedures were comfortable for you. With regards to your upper GI, the esophagus, and stomach looked normal. There is maybe a little bit of irritation at the GE junction, which is where the esophagus connects down onto the stomach. This is extremely common in patients with longstanding gastroesophageal reflux disease. I do not think this accounts for your symptoms. You do appear to have a slight tightening of your pylorus, which is the muscle that divide your stomach from your small intestine. When this muscle relaxes, it allows food to flow out of the stomach and into the small intestine. Yours is quite tight, and some of the tissue just before the pylorus is a little bit heaped up. I would say this most commonly occurs in patients who have previous ulcers and develop some scar tissue in the area, or who have another condition called adult idiopathic hypertrophic pyloric stenosis. Essentially this results when the muscle of the pylorus increases in size and tightens the channel that allows food to flow outward. I did multiple biopsies during the EGD, and I would like to see what those show before we make any decisions. Your colonoscopy also went very smoothly. I did find 1 tiny polyp in your rectum, which I removed today. Similar to the biopsies mentioned above, this will be sent off for testing. If it is in fact a true polyp, then the nature of that polyp will determine the timing of your next colonoscopy. I have gone ahead and made an appointment for you to see me in the office on the at 9 AM. I will certainly have the biopsy results back by then, we can talk about the next steps and treatments. In the meantime, I would encourage you to to consume small meals that are soft and easy to chew and break down, so that they can pass out of your stomach easily. 1. If tolerated, consume a soft, low fiber diet for 1-2 days. 2[address] Do not drive, drink alcohol, operate machinery, make critical decisions, or do activities that require coordination or balance for 24 hours. 3. Because air was put into your colon during the procedure, expelling air from your rectum (passing gas or farting) is normal. 4. You may not have a bowel movement for 1-3 days because of the colonoscopy prep. This is normal. 5. You may experience a sore throat for 24 to 48 hours. You may use throat lozenges or gargle with warm salt water to relieve the discomfort. 6. Because air was put into your stomach during the procedure, you may experience some belching. 7. Go directly to the emergency room if you notice any of the following: Develop chills (warm to touch), or if you have a thermometer and your temperature is above 101 Difficulty breathing or difficultly swallowing Persistent vomiting Severe abdominal pain, other than gas cramps Severe chest pain Black, tarry stools Any bleeding ? exceeding one tablespoon 8. Call your physician if the site where your intravenous was started becomes red, swollen, painful, and warm to touch. 9. Your physician has reviewed your pre-procedure medications. Please continue to take those medications as previously ordered. You will be given specific information/education regarding any changes to your medications before leaving. Activity:: Activity as Tolerated Diet:: As Tolerated Discharge Orders Discharge Orders: Discharge Order (Routine); Ordered 03/02/24 Ordered By: Murray Garcia DS: Diagnosis Discharge Diagnosis (1) Chronic GERD: Status: Acute
--- NOTE | 2024-03-02 20:02 | W.PM.ENDDOP ---
Date of service: 03/03/24 Time of Service: 09:40 Endoscopy Report DATE OF PROCEDURE: 03/03/24 PRE-OP DIAGNOSIS: GERD with dysphagia and screening colonoscopy POST-OP DIAGNOSIS: other (Pyloric stenosis and rectal polyp) PROCEDURE: EGD with biopsies and colonoscopy with polypectomy SURGEON: Murray Garcia ANESTHESIA TYPE: General:No Airway ESTIMATED BLOOD LOSS: 10 PATHOLOGY: other (Biopsies of the pylorus, and random biopsies of the gastric antrum and body. Biopsies of the GE junction. 0.25 cm flat rectal polyp) COMPLICATIONS: None DISPOSITION: same day INDICATIONS: Korina is a 48 year old woman with longstanding GERD and dysphagia. She also needs a screening colonoscopy PREP: Miralax/Dulcolax PROCEDURE START TIME: 08:53 PROCEDURE END TIME: 09:17 COLONOSCOPY RETRACTION TIME: 7 FINDINGS: Narrowed pyloric channel, normal-appearing GE junction and Z-line at 35 cm, 0.25 cm flat rectal polyp. PROCEDURE DESCRIPTION: After the initiation of anesthesia, and with the assistance of a bite block, I advanced a standard gastroscope through the mouth past the hypopharynx and into the esophagus.? Under the direct vision of the scope, I advanced down the esophagus towards the stomach.? The upper, mid, and lower esophagus were all normal-appearing. The GE junction measured 35 cm from the incisors, with very minimal irregularity Z-line. Narrowband imaging was used here. Clinically, it did not appear consistent with Barndt's esophagus. However I did perform cold forceps biopsies to better characterize the tissue. There was minimal bleeding. I advanced down into the stomach and perform retroflexion. There is no evidence of hiatal hernia. The gastric lumen was insufflated into the rugae were obliterated. I did not see any signs of gastritis, or any active peptic ulcer disease. I advanced down around the incisura angularis towards the pylorus. There was a little bit of heaped up tissue immediately adjacent to the opening of the pyloric channel. There was on the lesser curvature towards the anterior wall. Narrowband imaging was used to assist with this analysis as well. No worrisome features were appreciated. The pyloric channel was quite difficult to visualize, but eventually I was able to traverse across it. Duodenal bulb, first, and second portions of the duodenum were all normal and healthy appearing I brought the camera back up into the stomach and examined the pylorus once again. 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 Using cold forceps, perform multiple biopsies of the prepyloric channel, as well as the gastric antrum and body to rule out Helicobacter pylori or other pathology. I then emptied the stomach and brought the camera out along the length of the esophagus 1 last time. Nothing else out of the ordinary was appreciated. I then moved Korina into the left lateral decubitus position. Great care was taken to pad and support her appropriately. I began by performing an external anorectal exam.? Perineum and skin were normal, as was the anal verge.? There was no evidence of external hemorrhoids.? Next, I performed a digital rectal exam.? I did not appreciate any abnormal findings.? Next, I advanced a colonoscope into the rectal vault.? I performed retroflexion.? This appeared normal.? Using insufflation, I then advanced the colonoscope beyond the rectal folds and into the sigmoid colon before advancing towards the cecum.? The quality of the prep was excellent.? The scope was noted to be in the cecum by identification of the ileocecal valve and appendiceal orifice.? I then began withdrawing the colonoscope using repeated irrigation as necessary for full evaluation of the colonic mucosa. ?Once the scope was withdrawn to the level of the rectum, great care was taken to examine portions of the rectal folds.? In the upper portion of the rectal vault was a 0.25 cm flat polyp. This was removed with cold forceps with minimal bleeding. Finally, the scope was withdrawn and the patient was brought to the same-day surgery recovery unit as the anesthetic wore off. ?The findings and instructions were shared with the patient prior to discharge. The [place] bowel prep score from right to left was 3, 3, 3
--- NOTE | 2024-03-03 06:21 | ANES.PREOP_ITS ---
General Info Date of Service Date Performed: 03/03/24 Height: 5 ft 7 in Weight: 117.934 kg Body Mass Index (BMI): 40.7 Surgical Procedure: Operation Date: 03/03/24 09:05 Proposed Procedure Side Surgeon p Colonoscopy/Gastroscopy Murray Garcia MD Meds Allergies and Home Medications Allergies Allergy/AdvReac Type Severity Reaction Status Date / Time morphine AdvReac Intermediate Nausea, Verified 03/03/24 07:36 vomiting erythromycin base AdvReac DIARRHEA Verified 03/03/24 07:36 Sulfa (Sulfonamide AdvReac DIARRHEA Verified 03/03/24 07:36 Antibiotics) Home Medication Medication Instructions Recorded acetaminophen 500 mg tablet 1,000 mg (2 x 500 mg) PO Q6H PRN 04/04/18 (Tylenol Extra Strength) ##0 ibuprofen 200 mg tablet 2 tab PO Q6H PRN ##0 04/04/18 sertraline 50 mg tablet 50 mg PO DAILY #90 tabs 09/18/23 meloxicam 7.5 mg tablet 7.5 mg PO DAILY #90 tabs 10/27/23 omeprazole 20 mg capsule,delayed 20 mg PO DAILY #90 tab-caps 10/31/23 release dulaglutide 0.75 mg/0.5 mL 3 mg subcut .WEEKLY 02/19/24 subcutaneous pen injector ([facility]) Current Visit Medications: Current Medications Generic Name Dose Route Start Last Admin Trade Name Freq PRN Reason Stop Dose Admin Hyoscyamine Sulfate 0.125 mg 03/02/24 20:04 Hyoscyamine 0.125 Mg Sl/Oral/Chew SL DIRECTED PRN Ringer's Solution 1,000 mls @ 80 mls/hr 03/03/24 06:00 IV 03/03/24 23:59 INFUSION [facility] IV Miscellaneous Supplies 1 each 03/03/24 06:00 Iv Access IV 03/03/24 23:59 DIRECTED AIDA Ondansetron HCl 4 mg 03/02/24 20:04 Ondansetron 4 Mg/2 Ml Vial IVP 04/01/24 20:03 Q4H PRN PRN Nausea / Vomiting Sodium Chloride 0 ml 03/03/24 06:00 Normal Saline Flush 10 Ml Syr IV 03/03/24 23:59 PRN PRN Sodium Chloride 0 ml 03/03/24 06:00 Normal Saline 10 Ml Vial IJ 03/03/24 23:59 DIRECTED PRN Sterile Water 0 ml 03/03/24 06:00 Water,Injection,Sterile 10 Ml Vial IJ 03/03/24 23:59 DIRECTED PRN PFSH Active Problems Active Problems: Problem Status Onset Code NSAID long-term use Z79.1 Loss of hearing H91.90 Pain of left thumb M79.645 Achilles tendon injury S86.009A Shingles B02.9 Overactive bladder N32.81 Chronic GERD K21.9 Pain in Achilles tendon M76.60 Dysphagia R13.10 Arthritis M19.90 Calculus of gallbladder without cholecystitis without obstruction 04/07/18 K80.20 Depression 03/18/14 F32.9 Hepatic steatosis 04/07/18 K76.0 Medical History Medical History Abnormal auditory perception of right ear BMI 45.0-49.9, adult 12/2014 = 47.1kg/m2 Family history of malignant neoplasm of ovary in first degree relative mother with stage 4 ovarian CA. 9mo after dx. History of kidney infection Pt states frequent infection Surgical History Surgical History History of unilateral oophorectomy History of wisdom tooth extraction Hx of knee surgery Oophrectomy, Left (~09/2013) [facility] [place] Dr. Bautista. Benign path. S/P laparoscopic assisted vaginal hysterectomy ([facility]) Tooth extraction wisdom teeth. Tobacco Smoking/Tobacco Use Status: Former Tobacco Use Passive smoking exposure: Yes Second hand exposure: Yes Alcohol Alcohol Intake: current Alcohol intake frequency: holidays/special occasions only Alcohol type: wine Substance Use Substance use: Never Substance use type: does not use Prental History History 5 Para 3 Hx # Term Pregnancies Multiple births Hx # Pregnancies Ectopic pregnancies AB induced Hx Number of Living Children AB spontaneous Vital Signs and Lab Results Lab Results Blood Type / Crossmatch: No Data to Display Complete Blood Count: No Data to Display Complete Metabolic Panel: No Data to Display Liver Function Panel: No Data to Display Coagulation Panel: No Data to Display Cardiac Panel: No Data to Display Arterial Blood Gas: No Data to Display Venous Blood Gas: No Data to Display Pancreas Panel: No Data to Display Thyroid Panel: No Data to Display Infectious Disease: No Data to Display Blood Cultures: No Data to Display Toxicology Panel: No Data to Display Panel: No Data to Display Anesthesia Assessment and Plan Anesthesia History Personal History: Delayed Emergence Family History: No Family History of Anesthesia Complications Exercise Tolerance Exercise Tolerance: Metabolic Equivalents>4 Cardiac & Pulmonary Exam Cardiac Exam: Normal S1/S2 Heart Sounds Pulmonary Exam: Clear Bilateral Breath Sounds Implantable Cardiac Device Does patient have a Pacemaker or an ICD?: No Airway Exam Known Difficult Airway: No Mallampati Class: 4 Mouth Opening: Narrow (< 3cm) Thyromental Distance: Less than 3 cm Neck Range of Motion: Full ROM Neck Circumference: Thick Teeth Condition: Normal Dentition ASA Classification ASA Score: ASA 3 Emergency Case?: No NPO Status NPO Status: NPO Clears >2 hours, Solids >8 hours Status Status: History of Hysterectomy Anesthesia Plan Resuscitation Status: Full Code Anesthesia Technique: General Anesthesia Airway Planned: Natural Airway Monitors Used: Standard Monitors Preoperative Comments:: 48 yo female for EGD/colo. Sig PMHx: GERD (hasn't taken in a few days), depression, BMI 40 (Trulicity, last dose ~2 weeks ago) former smoker, occ EtOH. Previous Anes: - hyst, trevizo 2 2a, easy mask with OPA.
[2024-03-03 06:37] VITALS: BMI 40.7
[2024-03-03 07:12] VITALS: BP 105/79; PULSE 70; RESP 18; TEMP 36.4; O2SAT 99
[2024-03-03] MEDS: Lactated Ringers 1,000 ML 80 ML IV (07:34)
--- NOTE | 2024-03-03 08:57 | STOM_PTH ---
PATIENT: Korina Francois LOC: [facility] U#:[id number] AGE/SX: 48/F ROOM: RE03/03/[address]: Murray Garcia MD : 1975 BED: DIS: 03/03/2024 SPEC #: [id number] RECD: 03/03/24 13:02 STATUS: [facility] #: [id number] ELISA: 03/03/24 08:[address]: Murray Garcia DEPT: Surgical Specimen RECD BY: Destinee Chou ENTERED: 03/03/24 13:08 SP TYPE: STOMACH OTHR DR: Jason Rodríguez, CHOCOLATE MOLDER Tissues: 1 - STOMACH BIOPSY 2 - STOMACH BIOPSY 3 - STOMACH BIOPSY 4 - ESOPHAGUS BIOPSY 5 - BIOPSY BOWEL Procedures: GROSS AND MICRO LEVEL 4 Comments: [id number]
[2024-03-03 09:22] VITALS: BP 117/75; PULSE 71; RESP 18; TEMP 36.4; O2SAT 96
[2024-03-03 10:00] VITALS: BP 115/78; PULSE 56; RESP 18; TEMP 36.4; O2SAT 100
--- NOTE | 2024-03-03 10:26 | W.ANESPOSTOP ---
Postoperative Evaluation Date, Time and Location Date Performed: 03/03/24 Time Performed: : Patient Location: Day Surgery Unit Vital Signs Most Recent Imported Vital Signs: Most Recent Vital Signs Temp Pulse Resp BP Pulse Ox 36.4 C L 56 L 18 115/78 100 03/03/24 10:00 03/03/24 10:00 03/03/24 10:00 03/03/24 10:00 03/03/24 10:00 Pain Score Most Recent Pain Score: Most Recent Pain Score Pain Level 0 03/03/24 10:00 Assessment Mental Status: Awake (Alert & Oriented to Patient Baseline) Airway and Respiratory Function: Patent airway with normal (patient baseline) respiratory exam Cardiovascular Function: Hemodynamically Stable Hydration Status: Adequately Hydrated Nausea & Vomiting: No Nausea or Vomiting Pain: Pt. Denies Any Pain Peripheral Nerve Block: Patient did not receive a nerve block
== END 2024-03-03 10:25 | disposition home or self-care (01) ==
PROVIDERS: PCP Nurse Practitioner Family; Visit Provider Surgery
PROC: (CPT 45380; principal; 2024-03-03 09:00)
DX: Z12.11 Encounter for screening for malignant neoplasm of colon (principal); K62.1 Rectal polyp; K21.9 Gastro-esophageal reflux disease without esophagitis; K31.1 Adult hypertrophic pyloric stenosis; Z68.41 Body mass index [BMI] 40.0-44.9, adult; Z87.891 Personal history of nicotine dependence; F32.9 Major depressive disorder, single episode, unspecified
CPT/HCPCS: 45380; 43239; 88305; J2405; J2704

== ENCOUNTER 2024-06-22 00:46 | Outpatient (CLI) | payer MEDICAID, SELFPAY ==
--- NOTE | 2024-06-22 06:15 | DI.MAMMO_ITS ---
Exam(s) MAMMO SCREENING EXAM: MAMMO SCREENING CLINICAL HISTORY: screening,z12.39 TECHNIQUE: Mammograms were interpreted according to the usual protocol including computer analysis w [employer] CAD system, tomosynthesis and C-view imaging. COMPARISON: 2019 FINDINGS: The breasts are composed of mainly fatty density , Breast Density category A. No suspicious masses or suspicious microcalcifications are seen. No skin thickening or abnormal axillary lymph nodes are seen. There has been no significant change from prior exams. IMPRESSION: BI-RADS Category 1, Negative mammogram Yearly screening mammography is recommended. Breast Density - Category A, fatty density. A negative radiographic report should not delay biopsy if a dominant or clinically suspicious mass is present. Up to ten percent of cancers are not identified on mammography. A negative report may reinforce clinical impression. Adenosis and dense breasts may obscure an underlying neoplasm. False positive reports average 6 to 10%. Patient will receive a letter notifying them of these results.
== END 2024-06-22 01:06 ==
LOC: DI 00:46
PROVIDERS: PCP Nurse Practitioner Family; Visit Provider Nurse Practitioner Family
DX: Z12.31 Encounter for screening mammogram for malignant neoplasm of breast (principal)
CPT/HCPCS: 77063; 77067